=== PATIENT | male | born 1955 | race Caucasian/White ===

== ENCOUNTER 2016-10-26 18:54 | Inpatient (IN) | payer OTHER, MEDICAID ==
[~2016-10-26] VITALS: Ht 193 cm; Wt 93.3 kg
--- NOTE | ~2016-10-26 | HC ---
[facility] [address] CONSULTATION Name: JEANETTE LECHUGA Room #: 461-P [facility] IN M.R.#: [id number] Admission: 10/26/16 Attend Phys: Huy Adamson Discharge: 11/01/16 Date of : 57 Report #: [id number] THIS REPORT FOR: //name// CC: Mohsen Fraga DATE OF SERVICE: 10/28/2016 WOUND CARE CONSULTATION PERSONAL PHYSICIAN: Alvin Ortega M.D. CHIEF COMPLAINT: Multiple wounds. HISTORY OF PRESENT ILLNESS: This is a 61-year-old white male who is a chronic ventilator patient at [facility] with a history of quadriparesis, who presented through the emergency department for chest pain and palpitations. The patient was found to be in atrial fibrillation with rapid ventricular response. This was treated with a Cardizem drip. Due to the multiple wounds the patient has on his sacrum and bilateral hip region, I have been asked to assist in the care of these wounds. The patient himself is able to verbalize, however, difficulty, given the fact that he has a tracheostomy in place, but he states he has no actual pain in any of the wounds, but does have pressure sensations. PAST MEDICAL HISTORY: Significant for chronic Afib, chronic anticoagulation; history of quadriparesis; multiple wounds in his sacrococcygeal, bilateral hip and right foot; history of tracheostomy placement; chronic ventilator dependency; PEG tube placement and previous left hip fracture with instrumentation. CURRENT MEDICATIONS: Multiple, I reviewed the patient's medication list. DRUG ALLERGIES: SULFA. SOCIAL HISTORY: The patient has a history of smoking in the past. He does not drink alcohol. Currently, he is a long-term ventilatory patient at [facility]. FAMILY HISTORY: Not pertinent to current medical situation. REVIEW OF SYSTEMS: CONSTITUTIONAL: The patient denies fevers or chills. NEUROLOGIC: The patient is a quadriplegic. EYES: No complaints. ENT: No complaints. CARDIAC: The patient came in with history of palpitations and was found to be [facility] [address] [place] [address] CONSULTATION Name: JEANETTE LECHUGA Room #: 461-P DIS IN M.R.#: [id number] Admission: 10/26/16 Attend Phys: Huy Adamson Discharge: 11/01/16 Date of : 57 Report #: [id number] in rapid atrial fibrillation. Denies chest pain or palpitations at this time. Denies any associated edema. RESPIRATORY: The patient denies shortness breath or cough. Once again, he is on chronic ventilatory management. GASTROINTESTINAL: The patient has a PEG tube. Denies nausea or vomiting. MUSCULOSKELETAL: No complaints. SKIN: There are multiple decubitus ulcers. PHYSICAL EXAMINATION: VITAL SIGNS: Stable. The patient is afebrile. GENERAL: This is an alert and oriented times [address], not time, white male who is on chronic ventilatory management. HEENT: Normocephalic, atraumatic. Mucous membranes are dry. Pupils are round. Sclerae are white. NECK: Tracheostomy is in place without excoriation or JVD. LUNGS: Slightly diminished breath sounds heard throughout. Occasional wheeze. HEART: Irregularly irregular with 2/6 systolic ejection murmur. ABDOMEN: Soft. PEG tube is in place. SKIN: Evaluation of sacral region reveals a stage 4 sacral decubitus ulcer which measures 10.0 x 3.0 x 1.0 cm. Wound base is fairly clean and granulating. On the right ischial, there is a decubitus ulcer which is stage 3, measures 5.0 x 2.5 x 2.0 cm. On the left hip, there is wound that measures 11.0 x 4.0 x 4.5 cm. There is palpable hardware in this ulceration. On the shaft of the penis, on the ventral surface, is a ulceration, most likely from the catheter. On the right heel is an unstageable decubitus ulcer, which measures 3.5 x 1.3 cm, with dense eschar. On the plantar aspect of the right foot is an ulceration which probes to bone underneath the third toe. On the left heel is an ulceration which is stage 3, measuring 4.0 cm x 4.0 cm, which is a mix of mainly slough, approximately 90% and some granulation tissue. NEUROLOGIC: Cranial nerves 2-12 are grossly intact. Motor and sensory grossly intact. LABORATORY DATA: White count 15.8, hemoglobin 6.6. WOUND CARE COURSE: I spoke with the patient at this point in time given the extensive nature of the wound on his left hip with exposed hardware more than likely the only way to treat this would be with hip articulation. Orthopedics has been consulted as well as the patient most likely will need some type of operative repair or amputation of the right third toe. IMPRESSION: 1. Stage 4 sacrococcygeal decubitus ulcer. 2. Stage 4 decubitus ulcer of the left hip with exposed hardware. 3. Unstaged decubitus ulcer of the right plantar foot with exposed bone over the third metatarsal region. 4. Bilateral decubitus ulcers to the heels; right is unstageable, left is stage [address] [address] CONSULTATION Name: JEANETTE LECHUGA Room #: 461-P DIS IN M.R.#: [id number] Admission: 10/26/16 Attend Phys: Huy Adamson Discharge: 11/01/16 Date of : 57 Report #: [id number]. 5. Quadriparesis. 6. Generalized debility. 7. Chronic respiratory failure, on ventilator management. PLAN: At this time, we will use Silvadene, Xeroform and ABD to all of the open ulcerations, to be changed twice daily. Once again, orthopedics has been consulted for evaluation of the exposed hardware in the left hip as well as to the right foot exposed bone. We will try to maximize the patient's oral protein supplementation via his PEG tube. We will continue to follow the patient. <ELECTRONICALLY SIGNED> By: Chip Haile MD 11/02/16 0734 [id number] [id number] Chip Haile MD /nt
--- NOTE | ~2016-10-26 | H ---
[facility] [place] [address] HISTORY AND PHYSICAL Name: JEANETTE LECHUGA Room #: 461-P ADM IN M.R.#: [id number] Admission: 10/26/16 Attend Phys: Huy Adamson Discharge: Date of : 57 Report #: [id number] THIS REPORT FOR: //name// CC: Mohsen Fraga DATE OF SERVICE: 10/26/2016 ATTENDING: Dr. Fraga CHIEF COMPLAINT: Chest pain. HISTORY OF PRESENT ILLNESS: The patient is a 61-year-old gentleman, who is on a chronic ventilator at [facility] to [facility]riparesis came to the Emergency Room with chest pain and palpations. He was found to have rapid atrial fibrillation with . He has got a longstanding history of chronic respiratory failure and ventilator dependence related to underlying quadriparesis. There is report that he has an open wound in the left lower leg and there is some exposed hardware. This has not healed and he was actually a scheduled for admission for surgical intervention regarding the wound when he was found to have rapid atrial fibrillation and was diverted to the Emergency Room. He has been stabilized overnight with Cardizem drip and his ventilator care and no other new issues overnight. 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 PAST SURGICAL HISTORY: He has had trach, PEG or some surgery that has been performed to his left leg and it looks like an abdominal wound. FAMILY HISTORY: Unknown. SOCIAL HISTORY: He has got a [id number] history of smoking, unknown alcohol use. ALLERGIES: SULFA. MEDICATIONS: Pepcid, Paxil, Eliquis, Ritalin, MiraLax, clonidine, diltiazem, DuoNeb, hydrocodone, Ativan and Zanaflex. REVIEW OF SYSTEMS: He denies headache, chest pain, shortness of breath, abdominal pain, dysuria, syncope or fall. PHYSICAL EXAMINATION: VITAL SIGNS: Temperature 36.5, pulse 105, respirations 20, blood pressure 113/68, O2 sat 100% on the ventilator. [facility] [address] [place] [address] HISTORY AND PHYSICAL Name: JEANETTE LECHUGA Room #: 461-P ADM IN M.R.#: [id number] Admission: 10/26/16 Attend Phys: Huy Adamson Discharge: Date of : 57 Report #: [id number] GENERAL: He is awake and alert, in no distress. LUNGS: Clear. HEART: Irregular. ABDOMEN: Soft, normoactive bowel sounds. PEG tube in place. EXTREMITIES: There is an ostomy bag into an open area in the left mid abdomen. EXTREMITIES: No cyanosis, clubbing or edema. He has an open wound with what looks to be may be tender and exposed in the left lower leg. 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 LABORATORY DATA: X-rays were reviewed. ASSESSMENT: 1. Open wound, left lower leg. 2. Rapid atrial fibrillation. 3. Chronic ventilator dependence. 4. Chronic hypoxic respiratory failure. 5. Quadriparesis. 6. Leukocytosis. 7. Anemia of chronic disease, microcytic. PLAN: We will try to manage his AFib with rate control with diltiazem and atenolol. I will ask Cardiology to see him, as it appears he may need some surgery related to his left leg wound. Dr. Duffy will help manage the ventilator and I do not anticipate any weaning, as he has failed in the past and has been deemed a chronic ventilator dependence. I have spoken with Dr. Kain Fraga regarding infectious processes. X-ray of the leg will be obtained. He has had a Doppler ultrasound that showed peripheral artery disease, but no occlusion. I will ask ____ to see him as well. <ELECTRONICALLY SIGNED> By: Alvin Ortega MD 10/28/16 0839 [id number] 1117 Alvin Ortega MD /nt
--- NOTE | ~2016-10-26 | HC ---
[facility] [place] [address] CONSULTATION Name: JEANETTE LECHUGA Room #: 461-P ADM IN M.R.#: [id number] Admission: 10/26/16 Attend Phys: Huy Adamson Discharge: Date of : 57 Report #: [id number] THIS REPORT FOR: //name// CC: Mohsen Fraga REASON FOR CONSULTATION: I was asked to evaluate concerning pneumonia and chronic wounds to his extremities and sacrum. HISTORY OF PRESENT ILLNESS: The patient is a 61-year-old quadriplegic for many years with respiratory failure, tracheostomy, who had been at [facility] due to his failure to wean from the ventilator, also has chronic wounds to both ankles and his sacrum, presents with worsening oxygenation along with atrial fibrillation, rapid ventricular response, was brought into the Emergency Room where chest x-ray showed left lower lobe consolidation. He was placed on broad IV antibiotic therapy. Blood cultures grown, one of two sets positive for gram-positive coccus. He has had chronic wounds to his pelvis and his lower extremities due to pressure. Has a fracture to the left femur with an IM wisam in place longstanding. PAST MEDICAL HISTORY: Ventilatory dependent respiratory failure, quadriparesis, atrial fibrillation. It is noted that he had a wound to the left hip region with exposed hardware. ALLERGIES: SULFA. MEDICATIONS: As noted on his MAR, now on vancomycin, Zosyn and Levaquin. SOCIAL HISTORY: Past smoker, no significant alcohol intake. FAMILY HISTORY: Noncontributory. REVIEW OF SYSTEMS: He remains on the ventilator, moderate tracheal secretions. He is on FiO2 of 40%. He is alert, no change in mental status, has a colostomy and a PEG tube. PHYSICAL EXAMINATION: VITAL SIGNS: Afebrile and hemodynamically stable. GENERAL: He was alert. Left upper extremity PICC was unremarkable. HEENT: Tracheostomy is unremarkable. ABDOMEN: PEG site unremarkable. Colostomy unremarkable. Indwelling Miller catheter. SKIN: Has wounds to his sacrum with clean granulation tissue. The left hip wound with a sinus tract, which goes down to her hardware. Bilateral lateral ankle wounds with granulation tissue along with eschar. No surrounding erythema. His right plantar foot has got a wound over the third metatarsal head, which does have some exposed bone. NEUROLOGIC: He is quadriplegic. [address] [address] CONSULTATION Name: JEANETTE LECHUGA Room #: 1-[facility] IN M.R.#: [id number] Admission: 10/26/16 Attend Phys: Huy Adamson Discharge: Date of : 57 Report #: [id number] LABORATORY STUDIES: Chest x-ray, left lower lobe consolidation. 102. X-rays of the left tib-fib without osteomyelitis changes. Arterial studies of lower extremity negative for significant occlusive disease. Blood cultures one of two showing gram-positive cocci. Vancomycin trough is 28, dose has been adjusted. Hemoglobin 6.6, platelet count , white count 15.8. Sodium 140, potassium 3.6, bicarbonate 36, creatinine 0.5. IMPRESSION: A 61-year-old with chronic respiratory failure, ventilatory dependent, with left lower lobe pneumonia, atrial fibrillation and rapid ventricular response, consider nosocomial, healthcare-associated infection. The patient has pressure wounds sacrum, which is reasonably clean; left hip, which tracts to the hardware and bilateral ankle wounds, which were reasonably cleaned along with exposed bone to the plantar aspect of his right third metatarsal head. RECOMMENDATION: Continue IV antibiotic therapy. Obtain a culture from the right hip sinus tract. I have discussed with wound care service regarding approach to his wounds. Orthopedic Surgery has been consulted, but has not yet addressed his left hip wound and the hardware. We will need further imaging of this. We will await identification of his blood screening organism. <ELECTRONICALLY SIGNED> By: Kain Fraga MD 10/30/16 0951 1345 1744 Kain Fraga MD /nt
--- NOTE | ~2016-10-26 | HC ---
[facility] [place] [address] CONSULTATION Name: JEANETTE LECHUGA Room #: 461-P ADM IN M.R.#: [id number] Admission: 10/26/16 Attend Phys: Huy Adamson Discharge: Date of : 57 Report #: [id number] THIS REPORT FOR: //name// CC: Mohsen Fraga PRIMARY CARE PHYSICIAN: Dr. Mohsen Fraga. REFERRAL PHYSICIAN: Dr. Ortega. REASON FOR REFERRAL: Management of mechanical ventilation. HISTORY OF PRESENT ILLNESS: The patient is a 61-year-old white male who was brought to the Emergency Room with chest pains, dyspnea. A pulmonary consultation was requested. The patient is deemed to be ventilator dependent. He is a resident at [facility] due to quadriparesis. The patient was in his usual state of health until the day of presentation where the patient complained of chest pains along with palpitation. He was found to be in atrial fibrillation with rapid ventricular response. Currently, he is stable. He has been on Cardizem drip. History is limited as the patient has a tracheostomy. He appears to be awake, in no distress. PAST MEDICAL HISTORY: Remarkable for chronic respiratory failure, ventilator dependent due to quadriparesis from an underlying injury, atrial fibrillation, chronic wounds, abdominal fistula. PAST SURGICAL HISTORY: As mentioned above including prior PEG tube placement along with abdominal wounds as mentioned above. ALLERGIES: To SULFA, reactions not specified. MEDICATIONS: From the facility include Pepcid, Paxil, Eliquis, methylphenidate, MiraLax, Catapres, Cardizem, DuoNeb, Tylenol, hydrocodone, Ativan, pancrease, antacid, Zanaflex. FAMILY HISTORY: Unknown. SOCIAL HISTORY: The patient had smoked in the past 40 pack years. No alcohol history. REVIEW OF SYSTEMS: The patient has a tracheostomy and is not able to provide adequate answers. [facility] [address] [place] [address] CONSULTATION Name: JEANETTE LECHUGA Room #: 461-P [facility] IN [facility].#: [id number] Admission: 10/26/16 Attend Phys: Huy Adamson Discharge: Date of : 57 Report #: [id number] PHYSICAL EXAMINATION: GENERAL: He is awake, in no apparent distress. VITAL SIGNS: Temperature is 98 degrees Fahrenheit; pulse is 125, currently is 110 beats per minute, it is irregular; respiratory rate is 21; blood pressure 123/71 mmHg; saturation 100%. His current ventilator setting includes assist control, FiO2 40%, tidal volume 450, respiratory rate set at 12, minute ventilation around 9.4 liters per minute, peak inspiratory pressure 21, PEEP of 5. HEENT: Normocephalic, atraumatic. NECK: Supple, without lymphadenopathy or thyromegaly, status post tracheostomy. CHEST: Breath sounds are fairly clear. are decreased. No wheezes. CARDIOVASCULAR: No obvious murmurs or gallop. Pulses are 2+/4+ bilaterally. ABDOMEN: Soft, nontender. A PEG tube is noted in the mid quadrant area. No masses felt. GENITOURINARY: Deferred. RECTAL: Deferred. EXTREMITIES: No cyanosis, clubbing or edema. MUSCULOSKELETAL: Remarkable for moderate muscle atrophy. Lower extremity wounds are noted, but not fully examined as they are covered with wound dressing. LABORATORY DATA: Chest x-ray revealed air bronchogram seen in the left lower lobe. Tracheostomy is noted in the mid upper trachea area. WBC 28,500 without a left shift. Hemoglobin 7.7, platelets are 887,000. Troponin is normal. Sodium 137, potassium 4.4, chloride 98, CO2 is 37, BUN is 18, creatinine 0.5. IMPRESSION: 1. Chest pains, palpitations in this 61-year-old white male with chronic respiratory failure. He appears to be in atrial fibrillation with rapid ventricular response. 2. Chronic respiratory failure, vent dependent due to quadriparesis due to an inapparent injury. Saturation is adequate. We will obtain arterial blood gas. 3. Leukocytosis. This is without a left shift. Maybe reactive. Cannot rule out occult infection given his past history of chronic wounds. 4. Anemia, appears to be hypochromic, microcytic. Need to consider iron deficiency anemia. We will defer to primary team. 5. Chronic wounds in the left lower extremities. The patient is felt to have possible osteomyelitis. 6. Generalized debility, weakness. RECOMMENDATION: We will continue mechanical ventilation, baseline arterial blood gas will be obtained. Continue Cardizem as you are, Broad spectrum antibiotics per Infectious Disease. DVT and GI prophylaxis will be addressed. [address] [address] CONSULTATION Name: JEANETTE LECHUGA Room #: 461-P ADM IN M.R.#: [id number] Admission: 10/26/16 Attend Phys: Huy Adamson Discharge: Date of : 57 Report #: [id number] We will need to resume the nutritional feeds if stable. Thank you for this consultation. By: 1530 1854 ALIZE White /wendy
--- NOTE | ~2016-10-26 | EKG ---
[address] [place] [address] ELECTROCARDIOGRAM REPORT Name: JEANETTE LECHUGA Room #: 461-P ADM IN M.R.#: [id number] Admission: 10/26/16 Attend Phys: Huy Adamson Discharge: Date of : 57 Report #: [id number] THIS REPORT FOR: //name// [facility] ED Test Date: 2016-10-26 Test Time: 18:58:45 Pat Name: JEANETTE LECHUGA Department: Room: 461 Gender: M Site Worker: FABIO : 1955 Requested By: Irene Figueroa Order Number: [id number] MD: Freddie Thacker Measurements Intervals Union Rate: 160 P: VA: QRS: 101 QRSD: 98 T: 35 QT: 272 QTc: 444 Interpretive Statements Atrial fibrillation Consider right ventricular hypertrophy Artifact in lead(s) I,II,III,aVR,aVL,aVF No previous ECG available for comparison Electronically Signed On 10-27-2016 8:15:32 CDT by Freddie Thacker [email or web address] <ELECTRONICALLY SIGNED> By: Freddie Thacker MD, [facility] 10/27/16 0815 57 Freddie Thacker MD, [facility] /EPI
[2016-10-26 18:56] VITALS: BP 111/64
[2016-10-26] MEDS ORDERED: PEPCID20 MG PER TUBE (19:17)
[2016-10-26] MEDS ORDERED: PAXIL10 MG PER TUBE (19:23)
[2016-10-26] MEDS ORDERED: ELIQUIS5 MG PO (19:24)
[2016-10-26] MEDS ORDERED: METHYLPHENIDATE5 M1 PO (19:25)
[2016-10-26] MEDS ORDERED: MIRALAX17 GM PER TUBE (19:26)
[2016-10-26] MEDS ORDERED: CARDIZEM30 MG PER TUBE (19:27)
[2016-10-26] MEDS ORDERED: CATAPRES0.2 MG PER TUBE (19:27)
[2016-10-26] MEDS ORDERED: DUONEB 2.5-0.5 M3 ML (19:28)
[2016-10-26] MEDS ORDERED: IPRAT-ALBUT 0.5-3 ML INH (19:29)
[2016-10-26] MEDS ORDERED: TYLENOL325 MG PER TUBE (19:32)
[2016-10-26] MEDS ORDERED: MUPIROCIN22 GM TOP (19:32)
[2016-10-26] MEDS ORDERED: ATIVAN1 MG PO (19:33)
[2016-10-26] MEDS ORDERED: HYDROCODONE-APA1 TA1 PO (19:33)
[2016-10-26] MEDS ORDERED: PANCREAZE DR 11 EAC1 (19:34)
[2016-10-26] MEDS ORDERED: ANTACID325 MG PER TUBE (19:35)
[2016-10-26] MEDS ORDERED: ZANAFLEX4 MG (19:35)
[2016-10-26 19:40] LABS: HEMATOCRIT 25.6 % (42.0-52.0); HEMOGLOBIN 7.7 gm/dL (14.0-18.0); MCH 20.9 pg (26.0-34.0); MCV 69.7 fL (80.0-100.0); RBC 3.68 mil/uL (4.50-6.00); RDW 19.1 % (10.5-14.5); WBC 28.5 thou/uL (4.0-11.0)
[2016-10-26 19:42] LABS: MANUAL DIFF YES
[2016-10-26 19:43] LABS: PLATELET COUNT 887 thou/uL (150-400)
[2016-10-26 19:44] LABS: ANION GAP 2 mmol/L (7-16); BUN 18 mg/dL (7-18); CALCIUM 9.9 mg/dL (8.5-10.1); CHLORIDE 98 mmol/L (98-107); CO2 37 mmol/L (21-32); CREATININE 0.5 mg/dL (0.7-1.3); GLUCOSE 148 mg/dL (74-106); POTASSIUM 4.4 mmol/L (3.5-5.1); SODIUM 137 mmol/L (136-145)
[2016-10-26 19:53] LABS: TROPONIN-I < 0.04 ng/mL (<0.04-0.07)
[2016-10-26 19:57] LABS: ABSOLUTE NEUTROPHILS 23.7 thou/uL (1.4-8.2); TOTAL CELL COUNT 100
[2016-10-26 19:58] LABS: ANISOCYTOSIS 2+
[2016-10-26 19:59] LABS: HYPOCHROMASIA 3+; MICROCYTES 2+
[2016-10-26 21:55] VITALS: BP 101/63
[2016-10-26 22:30] VITALS: BP 102/62
[2016-10-26 23:33] VITALS: BP 117/75
[2016-10-27 05:31] VITALS: BP 105/62
[2016-10-27 08:36] VITALS: BP 113/68
[2016-10-27 11:01] VITALS: BP 123/71
[2016-10-27 16:12] VITALS: BP 94/52
[2016-10-27 19:57] VITALS: BP 97/65
[2016-10-28 03:39] VITALS: BP 107/70
[2016-10-28 06:06] LABS: HEMATOCRIT 21.3 % (42.0-52.0); HEMOGLOBIN 6.6 gm/dL (14.0-18.0); MCH 21.6 pg (26.0-34.0); MCHC 30.8 g/dL (28.0-37.0); MCV 70.1 fL (80.0-100.0); RBC 3.04 mil/uL (4.50-6.00); WBC 15.8 thou/uL (4.0-11.0)
[2016-10-28 06:10] LABS: CREATININE 0.5 mg/dL (0.7-1.3); POTASSIUM 3.6 mmol/L (3.5-5.1)
[2016-10-28 07:58] VITALS: BP 93/64
[2016-10-28 10:12] LABS: URINE BILIRUBIN NEGATIVE (Negative); URINE BLOOD NEGATIVE (Negative); URINE COLOR YELLOW; URINE GLUCOSE-RANDOM* NEGATIVE (Negative); URINE KETONES NEGATIVE (Negative); URINE LEUKOCYTES-REFLEX 1+ (Negative); URINE PROTEIN (DIPSTICK) TRACE (Negative); URINE SPECIFIC GRAVITY 1.015 (1.003-1.035); URINE UROBILINOGEN 0.2 E.U./dl (0.2-1.0)
[2016-10-28 12:00] VITALS: BP 85/58
[2016-10-28 12:16] LABS: CASTS None Seen /LPF (None Seen); SQUAMOUS 0-3 Few /LPF (0-3)
[2016-10-28 12:17] LABS: CALCIUM OXALATE 0-3 Few /LPF (None Seen); URINE RBC 0-2 Rare /HPF (0-2); URINE WBC-REFLEX 6-15 Few /HPF (0-5)
[2016-10-28 16:00] VITALS: BP 94/66
[2016-10-28 19:30] VITALS: BP 102/73
[2016-10-28 23:45] VITALS: BP 82/53
[2016-10-29] VITALS (8 sets, daily range): BP systolic 82–117; BP diastolic 46–80
[2016-10-29 06:10] LABS: WBC 17.7 thou/uL (4.0-11.0)
[2016-10-29 06:12] LABS: HEMATOCRIT 20.5 % (42.0-52.0); MCH 21.1 pg (26.0-34.0); MCHC 30.5 g/dL (28.0-37.0); MCV 69.3 fL (80.0-100.0); RBC 2.96 mil/uL (4.50-6.00); RDW 18.5 % (10.5-14.5)
[2016-10-29 06:19] LABS: CALCIUM 8.5 mg/dL (8.5-10.1); CREATININE 0.6 mg/dL (0.7-1.3); POTASSIUM 3.4 mmol/L (3.5-5.1)
[2016-10-29 06:22] LABS: HEMOGLOBIN 6.3 gm/dL (14.0-18.0)
[2016-10-30 03:59] VITALS: BP 109/64
[2016-10-30 07:50] VITALS: BP 89/51
[2016-10-30 11:37] VITALS: BP 100/58
[2016-10-30 16:15] VITALS: BP 91/53
[2016-10-30 19:02] VITALS: BP 97/61
[2016-10-31 00:18] VITALS: BP 81/50
[2016-10-31 04:11] VITALS: BP 90/55
[2016-10-31 07:20] VITALS: BP 104/60
[2016-10-31 11:28] VITALS: BP 107/63
[2016-10-31 15:53] VITALS: BP 94/60
[2016-11-01 05:00] VITALS: BP 97/67
[2016-11-01 05:24] LABS: MCH 21.5 pg (26.0-34.0); MCHC 30.9 g/dL (28.0-37.0); MCV 69.7 fL (80.0-100.0); RBC 2.78 mil/uL (4.50-6.00); RDW 19.1 % (10.5-14.5); WBC 15.3 thou/uL (4.0-11.0)
[2016-11-01 05:29] LABS: ANION GAP < 0 mmol/L (7-16); BUN 27 mg/dL (7-18); CALCIUM 8.3 mg/dL (8.5-10.1); CHLORIDE 102 mmol/L (98-107); CO2 37 mmol/L (21-32); CREATININE 0.6 mg/dL (0.7-1.3); GLUCOSE 117 mg/dL (74-106); POTASSIUM 3.6 mmol/L (3.5-5.1); SODIUM 138 mmol/L (136-145)
[2016-11-01 05:38] LABS: HEMATOCRIT 19.3 % (42.0-52.0)
[2016-11-01 08:14] VITALS: BP 102/51
[2016-11-01] MEDS ORDERED: BACLOFEN 10MG T10 MG PER TUBE (08:29)
[2016-11-01] MEDS ORDERED: ATENOLOL 25 MG25 M1 PER TUBE (08:29)
[2016-11-01] MEDS ORDERED: HYDROCODONE-APA1 TA1 PO (08:30)
[2016-11-01] MEDS ORDERED: ACETAMINOPHEN325 M1 PO (08:30)
[2016-11-01] MEDS ORDERED: ATIVAN1 MG PER TUBE (08:31)
[2016-11-01 09:43] VITALS: BP 104/58; BP 113/67; BP 84/53
[2016-11-01] MEDS ORDERED: VANCO 1 GR1 GM/250 M IV (10:01)
[2016-11-01] MEDS ORDERED: CEFTAZIDIME IV (10:04)
[2016-11-01 11:58] VITALS: BP 113/67
== END 2016-11-01 14:05 | DRG 870 ==
LOC: ER 18:54 → EROBS 20:01 → 4W 20:01 → EROBS 22:37 → 4W 23:32
PROVIDERS: Emergency Medicine; Internal Medicine Geriatric Medicine; Internal Medicine Pulmonary Disease; Specialist
PROC: B548ZZA Ultrasonography of Superior Vena Cava, Guidance (ICD-10-PCS; principal; 2016-10-26)
PROC: 02HV33Z Insertion of Infusion Device into Superior Vena Cava, Percutaneous Approach (ICD-10-PCS; principal; 2016-10-26)
PROC: 5A1955Z Respiratory Ventilation, Greater than 96 Consecutive Hours (ICD-10-PCS; principal; 2016-10-26)
PROC: 30233N1 Transfusion of Nonautologous Red Blood Cells into Peripheral Vein, Percutaneous Approach (ICD-10-PCS; 2016-11-01)
DX: A41.01 Sepsis due to Methicillin susceptible Staphylococcus aureus (principal); J96.20 Acute and chronic respiratory failure, unspecified whether with hypoxia or hypercapnia; G82.50 Quadriplegia, unspecified; L89.154 Pressure ulcer of sacral region, stage 4; L89.224 Pressure ulcer of left hip, stage 4; L89.623 Pressure ulcer of left heel, stage 3; J18.9 Pneumonia, unspecified organism; M86.8X6 Other osteomyelitis, lower leg; M86.8X8 Other osteomyelitis, other site; L89.610 Pressure ulcer of right heel, unstageable; D64.9 Anemia, unspecified; I10 Essential (primary) hypertension; D47.3 Essential (hemorrhagic) thrombocythemia; F17.210 Nicotine dependence, cigarettes, uncomplicated; I73.9 Peripheral vascular disease, unspecified; I48.2 Chronic atrial fibrillation; Z79.01 Long term (current) use of anticoagulants; Z88.2 Allergy status to sulfonamides
CPT/HCPCS: 10045; 27000

== ENCOUNTER 2017-01-02 15:57 | Inpatient (IN) | payer OTHER, MEDICAID ==
[2017-01-02] VITALS (22 sets, daily range): BP systolic 62–104; BP diastolic 37–90
[~2017-01-02] VITALS: Ht 177.8 cm; Wt 108.4 kg
--- NOTE | ~2017-01-02 | HC ---
[facility] [place] [address] CONSULTATION Name: JEANETTE LECHUGA Room #: 237-P [facility] IN M.R.#: [id number] Admission: 01/02/17 Attend Phys: Huy Adamson Discharge: Date of : 57 Report #: [id number] THIS REPORT FOR: //name// CC: Mohsen Fraga REASON FOR CONSULTATION: I was asked to evaluate concerning septic shock. HISTORY OF PRESENT ILLNESS: The patient was a 61-year-old with respiratory failure, known to me from his previous hospitalization on 10/26/2016 where he was diagnosed with MRSA bacteremia related to pneumonia versus osteomyelitis. In addition, he had gram-negatives in his sputum and his urine. He has known osteomyelitis of his left hip, both ankles and right foot metatarsals. He did not consent for surgical intervention regarding his bony abnormalities. My plan at the first part of November was to finish his course of treatment with vancomycin and ceftazidime for his bacteremia and gram-negatives from his sputum and urine. Then would go to oral suppression with doxycycline and see if we can keep the hips under control. He returns from [facility] with further hypoxia and hypotension. He was found to have a hemoglobin of 5.4. Blood pressures remained low and he has required fluids, blood transfusion and vasopressors. Moderate amount of tracheal secretions. He has hypospadias from long-term indwelling Miller catheter placement. His wounds remained dressed. He has a colostomy which is functioning well. The patient denies any specific chest pain, abdominal pain. PAST MEDICAL HISTORY: Multiple decubitus wounds with osteomyelitis, quadriparesis due to C-spine injury, atrial fibrillation, respiratory failure. ALLERGIES: SULFA. MEDICATIONS: As noted on his MAR, now on vancomycin, Zosyn, and micafungin. FAMILY HISTORY AND SOCIAL HISTORY: Otherwise, noncontributory. REVIEW OF SYSTEMS: Noted above. PHYSICAL EXAMINATION: VITAL SIGNS: Afebrile, heart rate 125, blood pressure 112/69 with a MAP of 80, on 80% FIO2. GENERAL: He was alert and cooperative. He was quadriparetic. Right upper extremity PICC was unremarkable. HEENT: Unremarkable. Tracheostomy site unremarkable. LUNGS: Coarse bilaterally. HEART: Regular. ABDOMEN: Soft, ostomy was unremarkable. He had significant hypospadias with the catheter exiting out the base of his penis. EXTREMITIES: The wounds were dressed and dry. Wound care just been in to evaluate. [facility] [address] [place] [address] CONSULTATION Name: JEANETTE LECHUGA Room #: 237-P ADM IN [facility].#: [id number] Admission: 01/02/17 Attend Phys: Huy Adamson Discharge: Date of : 57 Report #: [id number] LABORATORY STUDIES: Sodium 137, potassium 4.9, bicarbonate 31, creatinine 0.5, AST of 35, ALT 13, lipase was normal. Albumin of 1.6, lactate 1.2. Hemoglobin 7, up from 5.7 on admission, WBC 41.9, platelet count 772,000. Differential, 90% segs, 1% band. Urinalysis, many wbc's, moderate bacteria. ABG this morning on FIO2 of 100% showed a pO2 164, pCO2 of 48, pH 7.4. Blood cultures are pending. Urine cultures pending. No sputum obtained. Legionella and strep pneumo antigens negative. CT scan of the chest, no evidence of pulmonary emboli, complete atelectasis of left lung with extensive endobronchial debris, right lower lung infiltrate with bronchial debris, moderate mediastinal adenopathy. IMPRESSION: A 61-year-old with respiratory failure, now with aspiration, mucous plugging with dense atelectasis involving the left lung and right base, septic shock. Also has evidence of cystitis. Has advanced pressure wounds with osteomyelitis, nonoperative. PLAN: Recommend full support with IV fluids and vasopressors as needed. It appears, he will need bronchoscopy for pulmonary clearance. We will await pulmonary evaluation this morning. We will continue with broad antibiotic coverage pending further culture results. His previous sputum culture had grown Acinetobacter that was multidrug resistant. We will make adjustments empirically to his antibiotic coverage. <ELECTRONICALLY SIGNED> By: Kain Fraga MD 01/04/17 0912 0853 1043 Kain Fraga MD /nt
--- NOTE | ~2017-01-02 | H ---
[facility] [place] [address] HISTORY AND PHYSICAL Name: JEANETTE LECHUGA Room #: 237-P ADM IN M.R.#: [id number] Admission: 01/02/17 Attend Phys: Huy Adamson Discharge: Date of : 57 Report #: [id number] THIS REPORT FOR: //name// CC: Mohsen Fraga DATE OF SERVICE: 01/02/2017 CHIEF COMPLAINT: Possible sepsis. HISTORY OF PRESENT ILLNESS: The patient is a 61-year-old gentleman from [facility] with chronic respiratory failure, ventilator dependent who was sent to the Emergency Room for evaluation of sepsis. It appeared lab work was obtained routinely at the facility and noted to have a white count of 24,000. He has multiple wounds throughout and has been reported as not compliant with medication, wound care at the facility. He was hospitalized here in early November for evaluation of wounds of his feet. He had nonhealing arterial insufficiency type wounds and osteomyelitis and refused definitive amputation. He was sent back to the facility with a course of IV antibiotics and then planned to transition to suppression, oral antibiotics. PAST MEDICAL HISTORY: Quadriplegia with chronic respiratory failure, tracheostomy, PEG tube, an ostomy related to his original illness. He has been ventilator dependent for quite some time. He also has atrial fibrillation, hypertension, restless legs syndrome, anxiety, GERD. He has multiple wounds in the sacrum, scrotum and feet. There was concern of osteomyelitis in the feet during last admission. PAST SURGICAL HISTORY: Unknown. FAMILY HISTORY: Unobtainable. SOCIAL HISTORY: Unknown. ALLERGIES: SULFA. MEDICATIONS: Diltiazem, baclofen, atenolol, Ativan, Pepcid, Paxil, Eliquis, DuoNeb. REVIEW OF SYSTEMS: He is awake and alert. Denies any chest pain, abdominal pain, nausea, vomiting, dysuria, syncope. PHYSICAL EXAMINATION: VITAL SIGNS: Temperature 36.9, pulse 125, respirations 20, blood pressure 112/69, O2 sat 100% on the ventilator 40%. GENERAL: He is awake and alert. He is able to express his needs. HEAD AND NECK: Unremarkable with tracheostomy in place. [facility] [address] [place] [address] HISTORY AND PHYSICAL Name: JEANETTE LECHUGA Room #: 237-P ADM IN M.R.#: [id number] Admission: 01/02/17 Attend Phys: Huy Adamson Discharge: Date of : 57 Report #: [id number] LUNGS: Diminished on the left. Clear on the right. HEART: Tachycardic, regular rhythm. ABDOMEN: Soft, normoactive bowel sounds, slightly distended. He has a PEG tube in place. There is a left mid abdomen ostomy. EXTREMITIES: He has some flexion contractures at the hips and knees. There are wounds under the scrotum over the sacrum in both feet. NEUROLOGIC: He has spastic rigidity and quadriparesis throughout. ASSESSMENT: 1. Sepsis. 2. Healthcare-associated pneumonia with obliteration of the left lung on x-ray. 3. Chronic hypoxic and hypercapnic respiratory failure. 4. Ventilator dependence. 5. Arterial insufficiency wounds of the feet. 6. Suspected osteomyelitis of the left foot. 7. Sacral and scrotal wounds. 8. Anemia of chronic disease. 9. Chronic atrial fibrillation. PLAN: Multiple consultants have assessed him already and full treatment for sepsis is ongoing. Current medications will be reviewed. Continue supportive care. If he is going to be not compliant with surgical opinions and recommendations for treatment of his wounds on feet and not compliant with wound care at the facility, then this is a terminal situation and really need to pursue palliative care with him. We will see how the next few days go. <ELECTRONICALLY SIGNED> By: Alvin Ortega MD 01/04/17 1241 [id number] Alvin Ortega MD /nt
--- NOTE | ~2017-01-02 | HC ---
[facility] [place] [address] CONSULTATION Name: JEANETTE LECHUGA Room #: 237-P ADM IN M.R.#: [id number] Admission: 01/02/17 Attend Phys: Huy Adamson Discharge: Date of : 57 Report #: [id number] THIS REPORT FOR: //name// CC: Mohsen Fraga DATE OF SERVICE: 01/02/2017 REFERRING PROVIDER: Rui Fraga MD REASON FOR CONSULTATION: Respiratory failure. HISTORY OF PRESENT ILLNESS: Our group was asked to see the patient in consultation while hospitalized at [facility], known to us from recent hospital admission about 4 months ago. A 61-year-old male with prior admission for sepsis, likely related to MRSA bacteremia and chronic wound prior hospital stay. Orthopedic stated the patient will need extensive resections due to multiple decubitus ulcers, the patient refused at that time. He is a chronic ventilator patient and is at [facility]. The patient was found to be more hypoxemic in addition to having an elevated white blood cell count. He has a chronic anemia with hemoglobin today, however, at 5.4 was transferred here for further management. Noted in the Emergency Department to be hypoxemic without a significant change in his chest x-ray, no significant airway secretions noted and now being placed on sepsis protocol, to be transfused with 2 units of packed red blood cells and undergo CT imaging of the chest to further evaluate. ALLERGIES: SULFA. PAST MEDICAL HISTORY: 1. History of multiple decubitus ulcers of the lower extremities and pelvis. 2. History of quadriparesis due to C-spine injury. 3. Chronic atrial fibrillation, previously anticoagulated, unclear if he is on anticoagulation at this time. 4. Chronic respiratory failure. OUTPATIENT MEDICATIONS: 1. Diltiazem. 2. Baclofen. 3. Atenolol. 4. Hydrocodone. 5. Lorazepam. 6. Famotidine. 7. Possibly apixaban. 8. Paxil. 9. DuoNeb. 10. Methylphenidate. [address] [address] CONSULTATION Name: JEANETTE LECHUGA Room #: [facility] IN M.R.#: [id number] Admission: 01/02/17 Attend Phys: Huy Adamson Discharge: Date of : 57 Report #: [id number] 11. Zosyn. SOCIAL HISTORY: Currently lives in a long-term care facility. Previous tobacco history. No alcohol consumption at this time. FAMILY HISTORY: Unobtainable. REVIEW OF SYSTEMS: Otherwise, unobtainable at this time due to his current status. PHYSICAL EXAMINATION: VITAL SIGNS: Afebrile, pulse 150 and irregular, respiratory rate 28, blood pressure 104/56. GENERAL: This is a middle-aged male. Awake, alert and obviously uncomfortable. ENT: Tracheostomy tube in place with no surrounding erythema. LUNGS: Relatively clear. No wheezes or crackles. HEART: Regular, tachycardic. No murmurs. ABDOMEN: Soft, mildly distended. PEG tube in place. EXTREMITIES: Revealed multiple decubitus cultures as well as significant ulcerations in the inguinal and pelvic area with significant injury to the ventral surface of the penis through the urethra. LABORATORY DATA: Urinalysis revealed some microscopic hematuria with positive leukocyte esterase, white blood cell count 30,000, hemoglobin 5.7, hematocrit 20, platelet count 617. Sodium 131, potassium 5.5, chloride 94, bicarbonate 34, BUN 38, creatinine 0.6, glucose 127, alkaline phosphatase 143, albumin 1.6. Arterial blood gas on FiO2 of 80%, tidal volume of 450, PEEP of 10, rate of 12 revealed pH 7.39, pCO2 of 57, pO2 of 53, bicarbonate 34. IMPRESSION: 1. Acute on chronic hypoxemic respiratory failure. The chest x-ray with minimal change from previous ____ V/Q mismatch. 2. Multiple decubitus ulcers. 3. Severe sepsis, likely related to the above. 4. Chronic respiratory failure. 5. Chronic left basilar infiltrate or effusion. Does not appear significant different from more recent x-rays a few months ago. SUGGESTIONS: 1. Evaluate for pulmonary embolism. 2. Urology consultation. 3. Infectious Disease consultation. 4. ICU care. 5. Review of paperwork suggests the patient is a DNR, agree with this as he appears to be at the point of futile care. 6. Increase FiO2. [address] [address] CONSULTATION Name: JEANETTE LECHUGA Room #: 237-P ADM IN M.R.#: [id number] Admission: 01/02/17 Attend Phys: Huy Adamson Discharge: Date of : 57 Report #: [id number] 7. Follow up arterial blood gas. 8. Additional recommendations to follow. Thank you for requesting our suggestions. Discussed with ____ nurse practitioner in the Emergency Department as well as nursing. Total critical care time was 35 minutes, not including procedures. By: [id number] Jared Duffy MD /wendy
--- NOTE | ~2017-01-02 | HC ---
[facility] [place] [address] CONSULTATION Name: JEANETTE LECHUGA Room #: 237-P [facility] IN M.R.#: [id number] Admission: 01/02/17 Attend Phys: Huy Adamson Discharge: Date of : 57 Report #: [id number] THIS REPORT FOR: //name// CC: Mohsen Fraga DATE OF SERVICE: 01/03/2017 CHIEF COMPLAINT: Multiple pressure ulcerations and extremity ulcerations. HISTORY OF PRESENT ILLNESS: This is a 61-year-old male patient with chronic respiratory failure, ventilator dependent, who resides at [facility], who was admitted with sepsis. He had an elevated white blood cell count and had been admitted for further evaluation and treatment. He has been seen by us in the past. He has had recommendations for amputation of lower extremities. He has refused this in the past. He has history of arterial insufficiency and osteomyelitis. PAST MEDICAL HISTORY: Positive for quadriplegia, chronic respiratory failure with tracheostomy, PEG tube, colostomy, restless legs syndrome, anxiety, gastroesophageal reflux, multiple chronic ulcerations and osteomyelitis. FAMILY HISTORY: Unobtainable. SOCIAL HISTORY: Unknown. ALLERGIES: SULFA. MEDICATIONS: Include diltiazem, baclofen, atenolol, Ativan, Pepcid, Paxil, Eliquis, DuoNeb. He is currently on antibiotics per Infectious Disease as well as on a Levophed drip. REVIEW OF SYSTEMS: The patient does open his eyes. He is not able to answer any specific questions at this time. PHYSICAL EXAMINATION: VITAL SIGNS: Include respiratory rate of 19, blood pressure 105/69, temperature 97.1. GENERAL: This is a chronically ill-appearing male patient, who appears to be in no distress. HEENT: Head normocephalic. Extraocular movements appear to be grossly intact. NECK: Demonstrates tracheostomy. LUNGS: Reveal diminished breath sounds. HEART: Tachycardic without murmur. ABDOMEN: Soft. It is nontender. Bowel sounds are diminished. He has a PEG tube and a colostomy that appear to be intact and functioning well. GENITOURINARY: The patient is circumcised. He has significant hypospadias that [facility] [address] [place] [address] CONSULTATION Name: JEANETTE LECHUGA Room #: 237-P [facility] IN M.R.#: [id number] Admission: 01/02/17 Attend Phys: Huy Adamson Discharge: Date of : 57 Report #: [id number] is chronic. He has some excoriations and abrasions to his scrotum. SKIN: Examination of the pelvic region demonstrates what appear to be stage 4 pressure ulcerations to bilateral ischial tuberosities, both right and left posterior greater trochanters and his sacral region. These areas have a mixture of some slough and some granulation tissue. There are not much change from before. He has exposed bone in the base, especially involving the left hip region. He has a small crust with stable scab or eschar on the left elbow. He has unstageable pressure ulcer to the left heel, left lateral ankle, lower leg and deep tissue injury to left proximal lower leg. He has deep tissue injury to left great toe and the plantar aspect of the left foot. The right ankle demonstrates a large pressure ulceration, also unstageable, with eschar involving the right great toe and the right foot plantar region. CLINICAL IMPRESSION: 1. Chronic respiratory failure with tracheostomy. 2. Quadriplegia. 3. Severe protein-calorie malnutrition. 4. Stage 4 pressure ulceration bilateral ischial tuberosities, right and left posterior greater trochanters and sacrum with presumed underlying pelvic osteomyelitis. 5. Peripheral arterial disease. 6. Pressure ulceration to the left elbow, unstageable. 7. Pressure ulceration to the left heel, left lateral ankle and lower leg and deep tissue injuries to the left proximal lower leg, left great toe and plantar aspect of the left foot as well as unstageable pressure ulceration to the right lateral ankle with unstageable eschar on the right great toe and right foot plantar region. 8. Hypospadias. 9. Scrotal ulcerations/excoriation. RECOMMENDATIONS: At this point in time, we will recommend silver alginate, ABD and Kerlix to the extremities. We will recommend Betadine to all areas of eschar. He would need continued aggressive nutritional support. We will recommend moisture barrier with an antifungal component to the scrotal region and Maxorb Ag to the pelvic ulcerations. He will need turning and repositioning every 2 hours. Once again, he is in the past declined definitive amputative surgery. It is unlikely that these areas will resolve and I think conservative care would be recommended at present. I appreciate being asked to see the patient in consultation. <ELECTRONICALLY SIGNED> By: Darin Gerber MD 01/04/17 1419 [id number] Darin Gerber MD /nt
--- NOTE | ~2017-01-02 | HC ---
[facility] [place] [address] CONSULTATION Name: JEANETTE LECHUGA Room #: 237-P ADM IN M.R.#: [id number] Admission: 01/02/17 Attend Phys: Huy Adamson Discharge: Date of : 57 Report #: [id number] THIS REPORT FOR: //name// CC: Mohsen Fraga CHIEF COMPLAINT: Sepsis. HISTORY OF PRESENT ILLNESS: The patient is a 61-year-old gentleman, who is being seen today at the request Dr. Mohsen Fraga for evaluation and management of epispadias. Specifically, he was admitted to the ICU from [facility] long-term ventilator care facility with sepsis and anemia. He has a chronic indwelling Miller catheter and has developed iatrogenic hypospadias from this. ALLERGIES: SULFA. MEDICAL ILLNESSES: Chronic respiratory failure, chronic atrial fibrillation, quadriparesis to the C-spine injury, multiple decubitus ulcers. OUTPATIENT MEDICATIONS: Diltiazem, baclofen, atenolol, hydrocodone, lorazepam, famotidine, possibly apixaban, Paxil, DuoNeb, methylphenidate and Zosyn. SOCIAL HISTORY: Lives at a long-term care facility. Previous tobacco history. REVIEW OF SYSTEMS: Unobtainable. PHYSICAL EXAMINATION: GENERAL: He is a middle-aged gentleman, up in bed. VITAL SIGNS: Temperature is 37.1, pulse 130, blood pressure 107/84. ABDOMEN: Soft. He has indwelling Miller catheter with almost a perineal type of hypospadias. Testes are descended bilaterally. There is no acute intrascrotal pathology. There is, however, superficial erosion of the skin of the scrotum. LABORATORY DATA: White count , hemoglobin 7.0; hematocrit 23.4 and platelets 772,000. Sodium 137, potassium 4.9, chloride 101, CO2 31, BUN 32, creatinine 0.5. Urine is cloudy yellow, specific gravity 1.010, pH is 8, leukocyte esterase 3+, 3-10 red cells, greater than 25 white cells. IMPRESSION: Ventilator dependence with chronic Miller. PLAN: I recommend wound care service perhaps to evaluate his scrotum, otherwise it can be cleaned with soap and water. He could be converted to a suprapubic tube but at this point I would probably recommend just leaving the Miller and exchanging it monthly. <ELECTRONICALLY SIGNED> By: Alvin Amado MD 01/04/17 0631 0721 0824 Alvin Amado MD /nt
[~2017-01-02 15:57] MED LIST: ACETAMINOPHEN325 M1 PO; ANTACID325 MG PER TUBE; ATENOLOL 25 MG25 M1 PER TUBE; ATIVAN1 MG PER TUBE; ATIVAN1 MG PO; BACLOFEN 10MG T10 MG PER TUBE; CARDIZEM30 MG PER TUBE; CATAPRES0.2 MG PER TUBE; CEFTAZIDIME IV; DUONEB 2.5-0.5 M3 ML; ELIQUIS5 MG PO; HYDROCODONE-APA1 TA1 PO; IPRAT-ALBUT 0.5-3 ML INH; METHYLPHENIDATE5 M1 PO; MIRALAX17 GM PER TUBE; MUPIROCIN22 GM TOP; PANCREAZE DR 11 EAC1; PAXIL10 MG PER TUBE; PEPCID20 MG PER TUBE; TYLENOL325 MG PER TUBE; VANCO 1 GR1 GM/250 M IV; ZANAFLEX4 MG
[2017-01-02 16:17] LABS: ABG SAMPLE TYPE ARTERIAL; BE(vivo) 8.4 mmol/L (-2 to +3); HCO3 34.1 mmol/L (22.0-26.0); LACTATE 2.03 mmol/L (0.5-2.0); O2(CT) 7.9 mL/dL (15.0-23.0); O2Hb 85.8 % (92.0-98.0); PCO2 57.3 mmHg (35.0-45.0); pH 7.393 (7.360-7.450); sO2 86.6 % (92.0-98.0); tCO2 35.9 mmol/L (24.0-30.0)
[2017-01-02 16:18] LABS: PO2 53.3 mmHg (80.0-100.0); STICK SITE R.BRACHIAL
[2017-01-02 16:19] LABS: TIDAL VOLUME 450 ml; VDS CMV MODE cc
[2017-01-02] MEDS ORDERED: METHYLPHENIDATE5 M1 PO (17:09)
[2017-01-02] MEDS ORDERED: ZOSYN 3.3753.375 GM IV (17:10)
[2017-01-02 17:34] LABS: MCH 20.4 pg (26.0-34.0); MCHC 28.8 g/dL (28.0-37.0); MCV 70.9 fL (80.0-100.0); PLATELET COUNT 617 thou/uL (150-400); RBC 2.81 mil/uL (4.50-6.00); WBC 29.9 thou/uL (4.0-11.0)
[2017-01-02 17:36] LABS: ANION GAP 3 mmol/L (7-16); BUN 38 mg/dL (7-18); CALCIUM 9.2 mg/dL (8.5-10.1); CHLORIDE 94 mmol/L (98-107); CO2 34 mmol/L (21-32); CREATININE 0.6 mg/dL (0.7-1.3); GLUCOSE 127 mg/dL (74-106); MANUAL DIFF YES; POTASSIUM 5.5 mmol/L (3.5-5.1); SODIUM 131 mmol/L (136-145)
[2017-01-02 17:37] LABS: HEMATOCRIT 19.9 % (42.0-52.0); HEMOGLOBIN 5.7 gm/dL (14.0-18.0)
[2017-01-02 17:42] LABS: ALBUMIN 1.6 g/dL (3.4-5.0); ALKALINE PHOSPHATASE 143 U/L (46-116); DIRECT BILIRUBIN < 0.1 mg/dL (<0.1-0.3); SGOT 35 U/L (15-37); SGPT 13 U/L (30-65); TOTAL BILIRUBIN 0.2 mg/dL (<0.1-1.0); TOTAL PROTEIN 7.5 g/dL (6.4-8.2)
[2017-01-02 17:50] LABS: URINE BILIRUBIN NEGATIVE (Negative); URINE BLOOD 3+ (Negative); URINE COLOR YELLOW; URINE GLUCOSE-RANDOM* NEGATIVE (Negative); URINE KETONES NEGATIVE (Negative); URINE NITRITE NEGATIVE (Negative); URINE PROTEIN (DIPSTICK) TRACE (Negative); URINE UROBILINOGEN 0.2 E.U./dl (0.2-1.0)
[2017-01-02 18:04] LABS: CASTS None Seen /LPF (None Seen); CRYSTALS None Seen /LPF (None Seen); SQUAMOUS None Seen /LPF (0-3); URINE WBC >25 Many /HPF (0-5)
[2017-01-02 18:05] LABS: URINE RBC 3-10 Few /HPF (0-2)
[2017-01-02 18:18] LABS: ABSOLUTE NEUTROPHILS 27.2 thou/uL (1.4-8.2); TOTAL CELL COUNT 100
[2017-01-02 18:19] LABS: ANISOCYTOSIS 1+; HYPOCHROMASIA SLIGHT; POIKILOCYTOSIS SLIGHT; POLYCHROMASIA SLIGHT
[2017-01-02 18:20] LABS: MICROCYTES 2+
[2017-01-02] MEDS ORDERED: HYDROCODON-ACE1 EAC8 PO (21:20)
[2017-01-03] VITALS (74 sets, daily range): BP systolic 53–124; BP diastolic 19–91
[2017-01-03 05:08] LABS: CALCIUM 8.4 mg/dL (8.5-10.1); CREATININE 0.5 mg/dL (0.7-1.3); HEMATOCRIT 23.4 % (42.0-52.0); MCH 21.6 pg (26.0-34.0); POTASSIUM 4.9 mmol/L (3.5-5.1); RBC 3.25 mil/uL (4.50-6.00); RDW 18.6 % (10.5-14.5)
[2017-01-03 05:13] LABS: WBC 41.9 thou/uL (4.0-11.0)
[2017-01-03 05:18] LABS: INR 1.1; PROTIME 11.3 Seconds (9.3-11.4)
[2017-01-03 05:22] LABS: ABG SAMPLE TYPE ARTERIAL; BE(vivo) 4.5 mmol/L (-2 to +3); HCO3 29.8 mmol/L (22.0-26.0); LACTATE 1.54 mmol/L (0.5-2.0); O2(CT) 11.6 mL/dL (15.0-23.0); O2Hb 98.2 % (92.0-98.0); PCO2 48.5 mmHg (35.0-45.0); PO2 164.4 mmHg (80.0-100.0); STICK SITE R.RADIAL; TIDAL VOLUME 450 ml; pH 7.406 (7.360-7.450); sO2 99.1 % (92.0-98.0); tCO2 31.3 mmol/L (24.0-30.0)
[2017-01-04] VITALS (96 sets, daily range): BP systolic 60–131; BP diastolic 49–96
[2017-01-04 10:32] LABS: HEMATOCRIT 24.4 % (42.0-52.0); HEMOGLOBIN 7.2 gm/dL (14.0-18.0); MCH 21.9 pg (26.0-34.0); MCHC 29.7 g/dL (28.0-37.0); MCV 73.9 fL (80.0-100.0); RBC 3.31 mil/uL (4.50-6.00); RDW 18.9 % (10.5-14.5); WBC 38.7 thou/uL (4.0-11.0)
[2017-01-04 10:36] LABS: CALCIUM 8.6 mg/dL (8.5-10.1); CREATININE 0.5 mg/dL (0.7-1.3); POTASSIUM 3.9 mmol/L (3.5-5.1)
[2017-01-05] VITALS (79 sets, daily range): BP systolic 84–122; BP diastolic 41–91
[2017-01-05 05:26] LABS: ABG SAMPLE TYPE ARTERIAL; BE(vivo) 3.1 mmol/L (-2 to +3); HCO3 31.3 mmol/L (22.0-26.0); LACTATE 0.99 mmol/L (0.5-2.0); O2(CT) 12.3 mL/dL (15.0-23.0); O2Hb 96.5 % (92.0-98.0); PO2 102.2 mmHg (80.0-100.0); sO2 96.6 % (92.0-98.0); tCO2 33.6 mmol/L (24.0-30.0)
[2017-01-05 05:27] LABS: PCO2 72.1 mmHg (35.0-45.0); STICK SITE L.RADIAL; TIDAL VOLUME 450 ml; pH 7.256 (7.360-7.450)
[2017-01-05 05:28] LABS: ABG COMMENT A/C RATE 12
[2017-01-05 05:41] LABS: HEMATOCRIT 24.5 % (42.0-52.0); HEMOGLOBIN 7.3 gm/dL (14.0-18.0); MCH 22.1 pg (26.0-34.0); MCHC 29.7 g/dL (28.0-37.0); MCV 74.4 fL (80.0-100.0); RBC 3.29 mil/uL (4.50-6.00); RDW 19.2 % (10.5-14.5); WBC 39.8 thou/uL (4.0-11.0)
[2017-01-05 05:57] LABS: CALCIUM 8.9 mg/dL (8.5-10.1); CREATININE 0.4 mg/dL (0.7-1.3); POTASSIUM 3.9 mmol/L (3.5-5.1)
[2017-01-05 13:36] LABS: ABG SAMPLE TYPE ARTERIAL; BE(vivo) 3.4 mmol/L (-2 to +3); HCO3 30.2 mmol/L (22.0-26.0); LACTATE 1.41 mmol/L (0.5-2.0); O2(CT) 12.5 mL/dL (15.0-23.0); O2Hb 96.7 % (92.0-98.0); PCO2 59.5 mmHg (35.0-45.0); PO2 95.2 mmHg (80.0-100.0); sO2 96.6 % (92.0-98.0); tCO2 32.1 mmol/L (24.0-30.0)
[2017-01-05 13:37] LABS: STICK SITE R.RADIAL; TIDAL VOLUME 550 ml; pH 7.324 (7.360-7.450)
[2017-01-06] VITALS (91 sets, daily range): BP systolic 75–144; BP diastolic 45–93
[2017-01-06 05:43] LABS: ABG COMMENT A/C MODE; ABG SAMPLE TYPE ARTERIAL; BE(vivo) 5.4 mmol/L (-2 to +3); HCO3 31.4 mmol/L (22.0-26.0); LACTATE 1.16 mmol/L (0.5-2.0); O2(CT) 11.9 mL/dL (15.0-23.0); O2Hb 96.9 % (92.0-98.0); PCO2 54.4 mmHg (35.0-45.0); PO2 105.3 mmHg (80.0-100.0); STICK SITE R.RADIAL; TIDAL VOLUME 550 ml; pH 7.379 (7.360-7.450); sO2 97.6 % (92.0-98.0); tCO2 33.1 mmol/L (24.0-30.0)
[2017-01-06 06:33] LABS: HEMATOCRIT 24.9 % (42.0-52.0); HEMOGLOBIN 7.4 gm/dL (14.0-18.0); MCH 21.9 pg (26.0-34.0); MCHC 29.6 g/dL (28.0-37.0); MCV 74.1 fL (80.0-100.0); RBC 3.36 mil/uL (4.50-6.00); RDW 19.2 % (10.5-14.5)
[2017-01-06 06:39] LABS: WBC 23.8 thou/uL (4.0-11.0)
[2017-01-06 06:43] LABS: CALCIUM 9.5 mg/dL (8.5-10.1); CREATININE 0.5 mg/dL (0.7-1.3); POTASSIUM 3.8 mmol/L (3.5-5.1)
[2017-01-07] VITALS (37 sets, daily range): BP systolic 75–107; BP diastolic 47–81
[2017-01-07 05:32] LABS: MCHC 29.8 g/dL (28.0-37.0)
[2017-01-07 05:35] LABS: HEMATOCRIT 21.1 % (42.0-52.0); MCH 21.9 pg (26.0-34.0); MCV 73.3 fL (80.0-100.0); RBC 2.88 mil/uL (4.50-6.00); RDW 19.8 % (10.5-14.5); WBC 19.2 thou/uL (4.0-11.0)
[2017-01-07 05:43] LABS: CALCIUM 9.4 mg/dL (8.5-10.1); CREATININE 0.4 mg/dL (0.7-1.3); POTASSIUM 4.2 mmol/L (3.5-5.1)
[2017-01-07 05:48] LABS: HEMOGLOBIN 6.3 gm/dL (14.0-18.0)
[2017-01-08] VITALS (44 sets, daily range): BP systolic 83–131; BP diastolic 49–70
[2017-01-08 04:42] LABS: HEMOGLOBIN 7.6 gm/dL (14.0-18.0); MCH 22.8 pg (26.0-34.0); MCHC 30.3 g/dL (28.0-37.0); MCV 75.3 fL (80.0-100.0); RBC 3.32 mil/uL (4.50-6.00); RDW 20.7 % (10.5-14.5); WBC 17.3 thou/uL (4.0-11.0)
[2017-01-08 04:54] LABS: CALCIUM 9.6 mg/dL (8.5-10.1); CREATININE 0.5 mg/dL (0.7-1.3); POTASSIUM 4.3 mmol/L (3.5-5.1)
[2017-01-09] VITALS (31 sets, daily range): BP systolic 81–129; BP diastolic 53–81
[2017-01-09] MEDS ORDERED: MIDODRINE HCL 55 M1 PER TUBE (08:44)
[2017-01-09] MEDS ORDERED: ZOSYN 3.3753.375 GM IV (08:44)
[2017-01-09] MEDS ORDERED: DUONEB 2.5-0.5 M3 ML INH (08:44)
[2017-01-09] MEDS ORDERED: NORCO 7.5-3251 EACH PO (08:45)
[2017-01-09] MEDS ORDERED: HYDROCODON-ACE1 EAC8 PO (08:45)
[2017-01-09] MEDS ORDERED: DIGOXIN125 MCG PER TUBE (08:45)
[2017-01-09] MEDS ORDERED: ATIVAN1 MG PER TUBE (08:46)
== END 2017-01-09 16:00 | DRG 870 ==
LOC: ER 15:57 → ICU 17:26 → EROBS 17:26 → ICU 20:05
PROVIDERS: Internal Medicine; Internal Medicine Geriatric Medicine; Internal Medicine Pulmonary Disease; Nurse Practitioner
PROC: 5A1955Z Respiratory Ventilation, Greater than 96 Consecutive Hours (ICD-10-PCS; principal; 2017-01-02)
PROC: 30233N1 Transfusion of Nonautologous Red Blood Cells into Peripheral Vein, Percutaneous Approach (ICD-10-PCS; 2017-01-02)
PROC: B548ZZA Ultrasonography of Superior Vena Cava, Guidance (ICD-10-PCS; 2017-01-02)
PROC: 02HV33Z Insertion of Infusion Device into Superior Vena Cava, Percutaneous Approach (ICD-10-PCS; 2017-01-02)
DX: A41.9 Sepsis, unspecified organism (principal); J96.21 Acute and chronic respiratory failure with hypoxia; J18.9 Pneumonia, unspecified organism; R65.21 Severe sepsis with septic shock; E43 Unspecified severe protein-calorie malnutrition; J96.22 Acute and chronic respiratory failure with hypercapnia; G82.52 Quadriplegia, C1-C4 incomplete; L89.154 Pressure ulcer of sacral region, stage 4; L89.894 Pressure ulcer of other site, stage 4; J98.11 Atelectasis; M86.9 Osteomyelitis, unspecified; M86.8X0 Other osteomyelitis, multiple sites; Z99.11 Dependence on respirator [ventilator] status; I10 Essential (primary) hypertension; K21.9 Gastro-esophageal reflux disease without esophagitis; F41.9 Anxiety disorder, unspecified; G25.81 Restless legs syndrome; D64.9 Anemia, unspecified; I48.2 Chronic atrial fibrillation; Z68.34 Body mass index [BMI] 34.0-34.9, adult; L89.020 Pressure ulcer of left elbow, unstageable; L89.620 Pressure ulcer of left heel, unstageable; I73.9 Peripheral vascular disease, unspecified; L89.510 Pressure ulcer of right ankle, unstageable; D63.8 Anemia in other chronic diseases classified elsewhere; S30.813A Abrasion of scrotum and testes, initial encounter; I95.9 Hypotension, unspecified; T17.990A Other foreign object in respiratory tract, part unspecified in causing asphyxiation, initial encounter; Z88.2 Allergy status to sulfonamides; Z93.0 Tracheostomy status; Z90.3 Acquired absence of stomach [part of]; Z93.3 Colostomy status; Q54.9 Hypospadias, unspecified; Z79.899 Other long term (current) drug therapy
CPT/HCPCS: 10078; 27000

== ENCOUNTER 2017-02-09 12:49 | Inpatient (IN) | payer OTHER ==
--- NOTE | ~2017-02-09 | HC ---
[facility] [place] [address] CONSULTATION Name: JEANETTE LECHUGA Room #: 352-P ADM IN M.R.#: [id number] Admission: 02/10/17 Attend Phys: Huy Adamson Discharge: Date of : 57 Report #: [id number] THIS REPORT FOR: //name// CC: Rui Fraga DATE OF SERVICE: 02/10/2017 REFERRING PROVIDER: Rui Fraga MD. REASON FOR CONSULTATION: Chronic respiratory failure. CHIEF COMPLAINT: Malfunctioning suprapubic catheter and PEG tube. HISTORY OF PRESENT ILLNESS: Our group was asked to see the patient in consultation while hospitalized at [facility], known to us from prior admissions. He has chronic respiratory failure, on mechanical ventilatory support, unweanable from the ventilator due to quadriplegia from cervical spine injury, multiple admissions for decubitus wounds, recently here for healthcare-associated pneumonia, was admitted to get his suprapubic catheter placed and the PEG tube changed out. Currently has minimal secretions, notes no significant respiratory difficulties at this time, is awake and in no distress. ALLERGIES: INCLUDE SULFA. PAST MEDICAL HISTORY: 1. History of quadriplegia from the cervical spine injury. 2. Chronic respiratory failure due to paralysis. 3. Chronic atrial fibrillation. 4. Multiple decubitus ulcers. OUTPATIENT MEDICATIONS: Include diltiazem, Baclofen, atenolol, hydrocodone, lorazepam, famotidine, apixaban, Paxil, DuoNebs, methylphenidate, Zosyn. SOCIAL HISTORY: Lives in long-term care facility, prior tobacco user. FAMILY HISTORY: Unobtainable. REVIEW OF SYSTEMS: Rest of 12 point review of systems, significant findings as described in HPI and past medical history. PHYSICAL EXAMINATION: VITAL SIGNS: Temperature 98.0, pulse 106, respiratory rate 20, blood pressure 120/71. GENERAL: This is a middle-aged male. Awake, in no distress. EENT: Reveals a size 6 distal extended length 95 mm tracheostomy tube in place. [facility] [address] [place] [address] CONSULTATION Name: JEANETTE LECHUGA Room #: [address] [place] [address] IN M.R.#: [id number] Admission: 02/10/17 Attend Phys: Huy Adamson Discharge: Date of : 57 Report #: [id number] No surrounding erythema. LUNGS: Clear. No wheezes or crackles. CARDIOVASCULAR: Heart regular. No murmurs. ABDOMEN: Soft, nontender. PEG in place. EXTREMITIES: Lower extremity wounds are dressed with Kerlix, trace edema. NEUROLOGIC: The patient with 4/5 strength in upper extremities, with only flaccid minimal movement in the lower extremities. LABORATORY DATA: Pending. No radiographs performed. IMPRESSION: 1. Chronic respiratory failure. 2. Chronic decubitus ulcers. 3. Malfunctioning PEG tube. 4. Quadriplegia. 5. Atrial fibrillation. SUGGESTIONS: 1. Continue vent support. 2. Check chest radiograph to follow up on recent pneumonia. 3. While procedures as planned, we will continue to assist with management from a pulmonary standpoint, continue with bronchodilators. Thank you for requesting our suggestions. By: [id number] Jared Duffy MD /nt
--- NOTE | ~2017-02-09 | H ---
[facility] [place] [address] HISTORY AND PHYSICAL Name: JEANETTE LECHUGA Room #: 352-P ADM IN M.R.#: [id number] Admission: 02/10/17 Attend Phys: Huy Adamson Discharge: Date of : 57 Report #: [id number] THIS REPORT FOR: //name// CC: Mohsen Fraga DATE OF SERVICE: 02/10/2017 ATTENDING PHYSICIAN: Rui Fraga MD CHIEF COMPLAINT: Malfunctioning feeding tube and urinary incontinence. HISTORY OF PRESENT ILLNESS: The patient is a 62-year-old gentleman from [facility] ventilator unit who was admitted for evaluation of proper functioning of his feeding tube, but also consideration of suprapubic catheter for chronic urinary incontinence. He has a history of incomplete quadriplegia related an old injury and as a result, he has been ventilator dependent for a number of years. He has failed ventilator weaning trials before and has been deemed a chronic ventilator state. He has multiple wounds including osteomyelitis involving the left hip and suspected similar process involving the feet and ankles due to exposed tendon areas on wounds. In the past, he has declined amputation of the lower legs related to these nonhealing wounds. He has also been noncompliant with wound care and turning schedule of the care facility. He is hospitalized here several times with sepsis and as documented in the past in the record, he declined surgical intervention. He has DNR status and after his last hospitalization, we deemed him to be a palliative care case; however, now the issue is that the staff is having difficulty flushing and administering medications and feedings through his feeding tube. They have also had issues with urinary incontinence and apparently either bladder spasms or malfunctioning Miller catheter leading to urinary leakage around the tube, even when attempts to change to a different caliber. He is admitted now for consideration of exchange of his PEG tube and suprapubic catheter placement. PAST MEDICAL HISTORY: Quadriplegia with chronic hypoxic respiratory failure. He is chronically ventilator dependent. He has a tracheostomy tube and PEG tube. He has a colostomy in the left mid abdomen. He has a history of atrial fibrillation, GI bleed, hypertension, restless legs, anxiety, GERD, osteomyelitis of multiple wounds involving both feet and ankles, and the left ischium and hip. PAST SURGICAL HISTORY: As above, otherwise is unknown. FAMILY HISTORY: Unknown. SOCIAL HISTORY: Unknown. ALLERGIES: SULFA. [facility] [address] [place] [address] HISTORY AND PHYSICAL Name: JEANETTE LECHUGA Room #: 352-P [facility] IN M.R.#: [id number] Admission: 02/10/17 Attend Phys: Huy Adamson Discharge: Date of : 57 Report #: [id number] MEDICATIONS: Diltiazem, baclofen, Ativan, Pepcid, Paxil, digoxin, DuoNeb. REVIEW OF SYSTEMS: He is awake and alert. Denies chest pain, shortness of breath, or abdominal pain. OBJECTIVE: VITAL SIGNS: Temperature is 37.2, pulse 111, respirations 19, blood pressure 112/73, O2 sat 95% on the ventilator. GENERAL: As mentioned, he is awake and alert, in no distress. HEAD AND NECK: Unremarkable. Tracheostomy tube is in place. LUNGS: Clear anteriorly. HEART: Irregular, tachycardic. ABDOMEN: Soft, normoactive bowel sounds, colostomy left mid abdomen. PEG tube in place, there is no drainage, but he has a very long tube with black residue within the tube. EXTREMITIES: Showed no edema. NEUROLOGIC: He has incomplete quadriplegia with some spastic movement of the arms, but essentially no movement in the legs. IMAGING: EKG in tele reveal AFib. White count is 21, hemoglobin 6.6. Chemistry panel noted. KUB with flush reveals the tube to be within the stomach. ASSESSMENT: 1. Malfunctioning PEG tube. 2. Urinary incontinence. 3. Neurogenic bladder. 4. Quadriplegia. 5. Chronic hypoxic respiratory failure. 6. Ventilator dependence. 7. Chronic atrial fibrillation. 8. Chronic microcytic anemia. 9. Chronic leukocytosis. 10. Osteomyelitis of the left ischium and hip. 11. Osteomyelitis of the feet. 12. Multiple stage IV wounds. 13. Severe protein-calorie malnutrition with albumin 1.8. PLAN: The GI service has assessed him and appears that they will work towards exchanging his PEG tube. Urology has been consulted for discussion and consideration of suprapubic catheter placement. I called his care facility and his CBC is pretty chronic with a white count of 22,000 on 01/02/2017, hemoglobin around 6. He has had GI bleeding in the past and his anticoagulation has been discontinued as a result. He does have DNR status from the outside facility according to his orders and he has had DNR status here previously and so that [address] [address] HISTORY AND PHYSICAL Name: ANKUSHJEANETTE Room #: 352-P ADM IN M.R.#: [id number] Admission: 02/10/17 Attend Phys: Huy Adamson Discharge: Date of : 57 Report #: [id number] order will be reentered. Pulmonary service has been consulted to help just manage his ventilator during his stay. <ELECTRONICALLY SIGNED> By: Alvin Ortega MD 02/12/17 0747 0825 0933 Alvin Ortega MD /nt
[~2017-02-09 12:49] MED LIST changes: +DIGOXIN125 MCG PER TUBE; +DUONEB 2.5-0.5 M3 ML INH; +HYDROCODON-ACE1 EAC8 PO; +MIDODRINE HCL 55 M1 PER TUBE; +NORCO 7.5-3251 EACH PO; +ZOSYN 3.3753.375 GM IV
[2017-02-10 16:41] VITALS: BP 120/71
[2017-02-10 16:48] LABS: HEMOGLOBIN 6.6 gm/dL (14.0-18.0); MCV 72.4 fL (80.0-100.0)
[2017-02-10 16:49] LABS: HEMATOCRIT 22.2 % (42.0-52.0); MCH 21.5 pg (26.0-34.0); MCHC 29.7 g/dL (28.0-37.0); RBC 3.06 mil/uL (4.50-6.00); WBC 21.2 thou/uL (4.0-11.0)
[2017-02-10 17:01] LABS: ALBUMIN 1.8 g/dL (3.4-5.0); CALCIUM 9.4 mg/dL (8.5-10.1); CREATININE 0.5 mg/dL (0.7-1.3); POTASSIUM 4.1 mmol/L (3.5-5.1); TOTAL BILIRUBIN 0.3 mg/dL (<0.1-1.0); TOTAL PROTEIN 7.4 g/dL (6.4-8.2)
[2017-02-10 21:47] VITALS: BP 107/67
[2017-02-11 00:06] VITALS: BP 116/73
[2017-02-11 04:10] VITALS: BP 91/58
[2017-02-11 08:13] VITALS: BP 112/73
[2017-02-11 12:15] VITALS: BP 104/82
[2017-02-11 16:29] VITALS: BP 104/67
[2017-02-11 19:34] VITALS: BP 115/69
[2017-02-12 04:05] VITALS: BP 111/73
[2017-02-12 07:45] VITALS: BP 111/65
[2017-02-12 14:35] VITALS: BP 119/77
[2017-02-12 19:05] VITALS: BP 117/73
[2017-02-13 04:43] VITALS: BP 116/72
[2017-02-13 07:43] VITALS: BP 116/72
[2017-02-13 08:38] VITALS: BP 106/68
[2017-02-13 11:17] LABS: INR 1.1; PROTIME 11.1 Seconds (9.3-11.4)
[2017-02-13] MEDS ORDERED: NORCO 7.5-3251 EACH PO (12:19)
[2017-02-13] MEDS ORDERED: CARDIZEM30 MG PER TUBE (12:19)
[2017-02-13] MEDS ORDERED: ATIVAN1 MG PER TUBE (12:20)
[2017-02-13 15:57] VITALS: BP 112/65
== END 2017-02-13 18:43 | DRG 393 ==
LOC: 3W 12:49
PROVIDERS: Nurse Practitioner; Radiology Diagnostic Radiology
PROC: 5A1945Z Respiratory Ventilation, 24-96 Consecutive Hours (ICD-10-PCS; principal; 2017-02-10)
PROC: 0T9B30Z Drainage of Bladder with Drainage Device, Percutaneous Approach (ICD-10-PCS; 2017-02-13)
DX: K94.23 Gastrostomy malfunction (principal); G82.50 Quadriplegia, unspecified; E43 Unspecified severe protein-calorie malnutrition; J96.11 Chronic respiratory failure with hypoxia; M86.8X7 Other osteomyelitis, ankle and foot; M86.8X0 Other osteomyelitis, multiple sites; Z99.11 Dependence on respirator [ventilator] status; Y83.8 Other surgical procedures as the cause of abnormal reaction of the patient, or of later complication, without mention of misadventure at the time of the procedure; Y82.8 Other medical devices associated with adverse incidents; I10 Essential (primary) hypertension; G25.81 Restless legs syndrome; F41.9 Anxiety disorder, unspecified; K21.9 Gastro-esophageal reflux disease without esophagitis; I48.2 Chronic atrial fibrillation; L89.90 Pressure ulcer of unspecified site, unspecified stage; N31.9 Neuromuscular dysfunction of bladder, unspecified; R32 Unspecified urinary incontinence; D50.9 Iron deficiency anemia, unspecified; Z66 Do not resuscitate; N36.8 Other specified disorders of urethra; Z88.2 Allergy status to sulfonamides; Z87.19 Personal history of other diseases of the digestive system; Z79.01 Long term (current) use of anticoagulants; Z79.899 Other long term (current) drug therapy; Z23 Encounter for immunization
CPT/HCPCS: 10779

== ENCOUNTER 2017-03-15 14:21 | Inpatient (IN) | payer OTHER, MEDICAID ==
[2017-03-15] VITALS (17 sets, daily range): BP systolic 77–104; BP diastolic 60–83
[~2017-03-15] VITALS: Ht 182.9 cm; Wt 90.9 kg
--- NOTE | ~2017-03-15 | 2DMMODE ---
[facility] [address] [place] [address] 2 D/M-MODE ECHOCARDIOGRAM Name: JEANETTE LECHUGA Room #: 238-P ADM IN M.R.#: [id number] Admission: 03/15/17 Attend Phys: Huy Kat Discharge: Date of : 57 Date of Service: 03/20/17 1228 Report #: [id number] THIS REPORT FOR: //name// APPROVED REPORT Study performed: 03/20/2017 10:32:21 EXAM: Comprehensive 2D, Doppler, and color-flow Echocardiogram Patient Location: ICU Room #: 238 Status: routine BSA: 2.03 BP: 102/69 mmHg Other Information Study Quality: Technically Difficult/Technically Limited Technically limited study due to lung disease, inability to position patient, patient on ventilator, PEG tube. Doppler measurements not taken due to limited views/inaccurate doppler angles. Indications Hx afib, Rule out shunt Echo Enhancing Agent Indication: Rule out Shunt Agent(s) / Amount(s) Used: Agitated Saline 6 cc 2D Dimensions LVEF(%): 71.72 (>50%) IVSd: 10.72 (7-11mm) LVOT Diam: 19.35 (18-24mm) LVDd: 34.56 mm PWd: 12.83 (7-11mm) Ascending Ao: 29.41 (22-36mm) LVDs: 20.74 (25-40mm) Aortic Root: 31.90 mm IVC: 18.00 mm Fajardo's LVEF: 71.72 % Pulmonary Valve PV Peak Hood.: 1.48 m/s PV Peak Gr.: 8.77 mmHg Tricuspid Valve TR Peak Hood.: 3.00 m/s RAP Estimate: 5.00 mmHg TR Peak Gr.: 35.98 mmHg PA Pressure: 40.00 mmHg [facility] [place] [address] [address] 2 D/M-MODE ECHOCARDIOGRAM Name: JEANETTE LECHUGA Room #: 238- ADM IN M.R.#: [id number] Admission: 03/15/17 Attend Phys: Huy Kat Discharge: Date of : 57 Date of Service: 03/20/17 1228 Report #: [id number] Left Ventricle The left ventricle is normal size. Regional wall motion is not well visualized but grossly normal. There is normal left ventricular wall thickness. The left ventricular systolic function is normal. The left ventricular ejection fraction is within the normal range. LVEF is 65-70%. This study is not technically sufficient to allow evaluation of the LV diastolic function. Atria Injection of bubbles documented no interatrial shunt. Aortic Valve The aortic valve is not well visualized. No aortic regurgitation is visualized. Unable to obtain accurate doppler of the aortic valve. Mitral Valve Mitral valve appears grossly normal in structure. There is no mitral valve regurgitation noted. Unable to obtain accurate doppler of the mitral valve. Tricuspid Valve The tricuspid valve appears grossly normal in structure. Trace to mild tricuspid regurgitation noted. PAP is estimated at 40 mmHg. Pulmonic Valve Pulmonic valve is not well visualized. Great Vessels The aortic root is normal in size. IVC is normal in size and collapses >50% with inspiration. Pericardium There is no pericardial effusion. <Conclusion> Very limited study The left ventricular systolic function is normal. LVEF is 65-70%. Injection of bubbles documented no interatrial shunt. The aortic valve is not well visualized. Mitral valve appears grossly normal in structure. No mitral valve regurgitation noted. [facility] [address] [place] [address] 2 D/M-MODE ECHOCARDIOGRAM Name: JEANETTE LECHUGA Room #: 238-P [facility] IN M.R.#: [id number] Admission: 03/15/17 Attend Phys: Huy Kat Discharge: Date of : 57 Date of Service: 03/20/17 1228 Report #: [id number] Pulmonary artery pressure could not be reliably ascertained There is no pericardial effusion. <ELECTRONICALLY SIGNED> By: Freddie Thacker MD, [facility] 03/20/17 1228 122 1228 Freddie Thacker MD, FACC /INF
--- NOTE | ~2017-03-15 | HC ---
[facility] [place] [address] CONSULTATION Name: JEANETTE LECHUGA Room #: 238-P [facility] IN M.R.#: [id number] Admission: 03/15/17 Attend Phys: Kevin Croft MD Discharge: Date of : 57 Report #: [id number] THIS REPORT FOR: //name// CC: Mohsen Croft REASON FOR CONSULTATION: I was asked to evaluate concerning septic shock. HISTORY OF PRESENT ILLNESS: The patient is a 62-year-old hospitalized recently 02/23 through 03/06 with combination of issues including partial small-bowel obstruction, C. difficile positive stools with diarrhea, GI bleed, probable ventilator-associated pneumonia in a patient with failure to wean from the ventilator and extensive chronic osteomyelitis involving both lower extremities [id number] and his pelvis. He was stabilized at his last admission and was discharged on enteral vancomycin. He returned to [facility] ventilatory unit. He returns on 03/15, with abdominal distention and copious output from his PEG tube. Decreased output from his colostomy. He had atrial fibrillation with rapid ventricular response. His PEG tube was placed to suction and over 4 liters of green fluid was drained. He remained tachycardic and hypotensive. He has received IV fluids through the night close to 6 liters. Also, received albumin. He is on low dose Levophed drip. His heart rate now is controlled. His urine output is about 30 mL per hour. He is alert and cooperative and in no distress on the ventilator. Further details from skilled nursing does state he was vomiting green fluid prior to his transfer. PAST MEDICAL HISTORY: Nonhealing wounds to his hips, pelvis and lower extremities [id number] with underlying chronic osteomyelitis. The patient has refused surgical intervention and amputation. Respiratory failure with quadriplegia and ventilatory dependence. Obstructive sleep apnea, anxiety, gastroesophageal reflux, heart failure, hypertension, and atrial fibrillation. C. difficile colitis. Partial small-bowel obstruction previously. ALLERGIES: SULFA. MEDICATIONS: As noted on his JUN. He was continued on metronidazole and started on Zosyn last night. Due to his bowel obstruction, the vancomycin was put on hold. FAMILY HISTORY: Noncontributory. SOCIAL HISTORY: jail resident, otherwise noncontributory. REVIEW OF SYSTEMS: No chest pain. Moderate tracheal secretions. No change in his ventilatory requirements. PHYSICAL EXAMINATION: [facility] [address] [place] [address] CONSULTATION Name: JEANETTE LECHUGA Room #: 238-P [facility] IN M.R.#: [id number] Admission: 03/15/17 Attend Phys: Kevin Croft MD Discharge: Date of : 57 Report #: [id number] VITAL SIGNS: Afebrile, blood pressure 76/57, MAP of 64-78 this a.m. He is on 4 mcg per minute of Levophed. FiO2 of 45%. GENERAL: He was alert and cooperative. IV site PICC was unremarkable. HEENT: Tracheostomy unremarkable. CHEST: Clear anteriorly. HEART: Irregular. ABDOMEN: Soft, was nontender, ostomy left abdomen with liquid stool, green drainage from his PEG tube. EXTERNAL GENITALIA: Unremarkable. SKIN: Wounds were dressed. NEUROLOGIC: Quadriplegic. LABORATORY STUDIES: Sodium 143, potassium 3.0, bicarbonate 39, and creatinine 1.1. MRSA screen negative. Urinalysis, many wbc's, many bacteria. Liver function test normal. Hemoglobin 9.1, WBC 12.5, platelet count pending. Lactate 1.4. Procalcitonin 4. CT scan of the abdomen and pelvis, large amount of fluid distending the stomach, small-bowel down to the area of obstruction. The colon was not thickened. There was no increased fluid in the colon. Suprapubic catheter in place. Gastrostomy tube in place, basilar atelectasis versus pneumonia improved from previous, chronic changes to his pelvis bones. IMPRESSION: Shock due to sepsis and hypovolemia in the setting of small-bowel obstruction. He also has chronic basilar atelectasis and infiltrates in the setting of chronic ventilatory requirement and quadriplegia. He has Clostridium difficile positive stools. We will recommend broad antibiotic coverage for the next 24-48 hours pending resuscitative measures. General surgery has seen the patient and is following. So far, conservative measures are being undertaken. No plan for surgery yet. Discussed with nursing staff. We will continue fluid resuscitation output. <ELECTRONICALLY SIGNED> By: Kain Fraga MD 03/18/17 [id number] [id number] Kain Fraga MD /nt
--- NOTE | ~2017-03-15 | P ---
[facility] [place] [address] PROCEDURE REPORT Name: JEANETTE LECHUGA Room #: 351-P ADM IN M.R.#: [id number] Admission: 03/15/17 Attend Phys: Kevin Croft MD Discharge: Date of : 57 Report #: [id number] THIS REPORT FOR: //name// CC: Mohsen Croft DATE OF SERVICE: 03/17/2017 PERSONAL PHYSICIAN: Dr. Kevin Croft. CHIEF COMPLAINT: Decubitus ulcer of left lateral lower extremity. HISTORY OF PRESENT ILLNESS: This is a 62-year-old white male with a history of multiple pressure ulcerations who is readmitted to the hospital for pneumonia and possible small-bowel obstruction. We have followed this patient for a prolonged period of time for multiple decubitus ulcers on lower extremities. The patient has an unstageable decubitus ulcer in his left lateral lower extremity with loose eschar, which is necrotic, requiring debridement. PREPROCEDURE DIAGNOSES: 1. Unstageable decubitus ulcer, left lateral lower extremity with necrotic eschar. 2. Paraplegia. 3. Generalized debility. POSTPROCEDURE DIAGNOSES: 1. Unstageable decubitus ulcer, left lateral lower extremity with necrotic eschar. 2. Paraplegia. 3. Generalized debility. DESCRIPTION OF PROCEDURE: After timeout was taken, verbal consent was obtained. The patient had excisional debridement down to and including subcutaneous tissue with removal 100% of the ulcer and eschar. This involved both viable and nonviable tissue. Preprocedure measurements were 10.0 x 3.0 x 0.1 cm. Postprocedure measurements were 10.0 x 3.0 x 0.5 cm. Topical lidocaine used for the anesthetic. Bleeding was minimal, easily controlled with pressure and silver nitrate cauterization. The patient tolerated procedure well. Post-procedure, the patient had dressing placed over the ulcer site. Total amount of subcutaneous excisional debridement performed was 30 square cm. <ELECTRONICALLY SIGNED> By: Chip Haile MD 03/30/17 1132 1135 1628 Chip Haile MD /nt
--- NOTE | ~2017-03-15 | HC ---
[facility] [place] [address] CONSULTATION Name: JEANETTE LECHUGA Room #: 238-P [facility] IN M.R.#: [id number] Admission: 03/15/17 Attend Phys: Kevin Croft MD Discharge: Date of : 57 Report #: [id number] THIS REPORT FOR: //name// CC: Mohsen Croft DATE OF SERVICE: 03/16/2017 PRIMARY CARE PHYSICIAN: Dr. Kevin Croft. REFERRAL PHYSICIAN: Dr. Kevin Croft. REASON FOR REFERRAL: Acute on chronic respiratory failure. HISTORY OF PRESENT ILLNESS: The patient is a 62-year-old white male who was readmitted with multiple problems including partial small-bowel obstruction, C. difficile colitis and diarrhea. He is on chronic mechanical ventilation. A pulmonary consultation was requested. The patient has a complicated medical history. He is quadriplegic with dependence on mechanical ventilator. He has obstructive sleep apnea, gastroesophageal reflux disease, chronic heart failure, atrial fibrillation. PAST MEDICAL HISTORY: Chronic small bowel obstructions. Because of his quadriplegia, he has had several nonhealing wounds involving his hips, pelvis, lower extremities along with chronic osteomyelitis. The patient has refused surgical treatment including amputation in the past. PAST SURGICAL HISTORY: Includes status post PEG, tracheostomy. ALLERGIES: SULFA, reactions unspecified. MEDICATIONS: List reviewed in the MAR. FAMILY HISTORY: Unobtainable. SOCIAL HISTORY: He is a resident at a long-term care facility. He has smoked in the past. REVIEW OF SYSTEMS: Deferred as the patient is trached. PHYSICAL EXAMINATION: GENERAL: He is awake, in no apparent distress. VITAL SIGNS: Temperature is 97 degrees Fahrenheit, pulse is 110, respiratory rate is 16, blood pressure is 100-80 mmHg systolic, saturation 96%. [facility] [address] [address] CONSULTATION Name: JEANETTE LECHUGA Room #: 238-P [facility] IN ..#: [id number] Admission: 03/15/17 Attend Phys: Kevin Croft MD Discharge: Date of : 57 Report #: [id number] HEENT: Normocephalic, atraumatic. NECK: Supple without any lymphadenopathy or thyromegaly, status post tracheostomy. CHEST: Breath sounds are fair with decreased breath sounds in the bases. Few scattered crackles. No wheezes. CARDIOVASCULAR: Normal S1, S2. No murmurs or gallop. There is no JVD. There is no carotid bruit. Pulses are 2+/4+ bilaterally. ABDOMEN: Moderately distended, but soft. Positive for PEG tube placement. GENITOURINARY: Deferred. RECTAL: Deferred. EXTREMITIES: Remarkable for marked muscle atrophy, upper extremity contractures, but no cyanosis or clubbing. Trace edema bilaterally. LABORATORY: CT abdomen and pelvis shows a distal mechanical small-bowel obstruction. Lactic acid is 1. Procalcitonin is 4.0. LABORATORY DATA: Portable chest x-ray shows questionable left lower lobe infiltrates. Tracheostomy is in appropriate position. Right lung field and left upper lobe is otherwise clear. Electrolytes: Sodium 143, potassium 3.0, chloride 99, CO2 is 39, BUN is 41, creatinine 1.0. Liver function enzymes are grossly unremarkable. WBC 12,500, hemoglobin 9.1, platelets mildly elevated. Albumin 2.3. Arterial blood gas revealed pH 7.52, pCO2 of 52, pO2 of 140 on FiO2 of 50%. IMPRESSION: 1. Acute on chronic respiratory failure. 2. Small-bowel obstruction, distal. 3. Quadriplegia, ventilator dependent. 4. Chronic atrial fibrillation, rapid ventricular response. 5. Hypotension, suspect due to severe sepsis, status post volume resuscitation. 6. Multiple chronic decubitus wounds along with chronic osteomyelitis. The patient has refused surgical treatment including amputation in the past. RECOMMENDATION: We will continue mechanical ventilation. Continue antibiotics per Infectious Disease, will need nutritional support. Agree with sepsis protocol with IV fluid replacement. DVT and GI prophylaxis will be addressed. Thank you for this consultation. <ELECTRONICALLY SIGNED> By: Vic Guevara MD 03/17/17 1718 1707 2258 Vic Guevara MD /nt
--- NOTE | ~2017-03-15 | EKG ---
[address] [address] ELECTROCARDIOGRAM REPORT Name: JEANETTE LECHUGA Room #: 238-P ADM IN M.R.#: [id number] Admission: 03/15/17 Attend Phys: Kevin Croft MD Discharge: Date of : 57 Report #: [id number] THIS REPORT FOR: //name// [facility] ED Test Date: 2017-03-15 Test Time: 14:37:30 Pat Name: JEANETTE LECHUGA Department: Room: 238 Gender: M Writing Manager: Colleen MIGUEL : 1955 Requested By: Stepan Jin Order Number: [id number] MD: Avtar Flannery Measurements Intervals [place] Rate: 177 P: MA: QRS: 98 QRSD: 83 T: -60 QT: 275 QTc: 472 Interpretive Statements Atrial fibrillation with rapid V-rate Consider RVH w/ secondary repol abnormality ST depression, probably rate related Compared to ECG 02/23/2017 15:32:57 No significant changes Electronically Signed On 03-15-2017 21:38:24 CTE TEACHER by Avtar Flannery [email or web address] <ELECTRONICALLY SIGNED> By: Avtar Flannery MD 03/15/17 2138 1437 143 Avtar Flannery MD /EPI
--- NOTE | ~2017-03-15 | HC ---
[facility] [place] [address] CONSULTATION Name: JEANETTE LECHUGA Room #: 238-P [facility] IN M.R.#: [id number] Admission: 03/15/17 Attend Phys: Kevin Croft MD Discharge: Date of : 57 Report #: [id number] THIS REPORT FOR: //name// CC: Mohsen Croft DATE OF SERVICE: 03/15/2017 REFERRING PROVIDER: Kevin Croft MD REASON FOR CONSULT: Abdominal pain. HISTORY OF PRESENT ILLNESS: The patient is a 62-year-old chronically ill male who is ventilator dependent through a tracheostomy and has a PEG tube and a colostomy, who presented to the emergency room in transfer from [facility] secondary to abdominal distention, pain and green drainage around his PEG tube. In addition, the patient was noted to be extremely tachycardic and was found to be in atrial fibrillation with RVR. The patient was recently admitted for a similar event with concern for a small-bowel obstruction that reportedly cleared with conservative management. Upon transfer to the emergency room, his PEG tube was hooked to low intermittent suction and he has had greater than 2 liters of output thus far with significant improvement in his abdominal distention. Workup in the form of laboratories and a CT scan of the abdomen and pelvis were obtained. The patient's labs showed a normal lactic acid of 1.0, although he does have a mild leukocytosis with a white blood cell count of 19.[address] scan showed markedly dilated stomach and proximal small-bowel with a distal small-bowel obstruction suspected. The patient has been transitioned to the ICU and I was asked to evaluate from a surgical standpoint. PAST MEDICAL HISTORY: Quadriplegia, chronic respiratory failure, status post tracheostomy with ventilator dependency, obstructive sleep apnea, GERD, hypertension, heart failure, atrial fibrillation on multiple prior occasions and multiple nonhealing decubitus wounds. MEDICATIONS: Digoxin, midodrine, Tylenol, Ativan, [place], vancomycin, diltiazem, ipratropium, albuterol, famotidine, Paxil, and Zofran. ALLERGIES: To SULFA. FAMILY HISTORY: Reviewed and noncontributory. SOCIAL HISTORY: The patient does not currently utilize tobacco, alcohol, or illicit drugs. REVIEW OF SYSTEMS: [facility] [address] [address] CONSULTATION Name: JEANETTE LECHUGA Room #: 238-P [facility] IN M.R.#: [id number] Admission: 03/15/17 Attend Phys: Kevin Croft MD Discharge: Date of : 57 Report #: [id number] GENERAL: The patient denies nocturnal fevers or chills. HEENT: No change in vision or change in hearing. NECK: No swelling or difficulty swallowing. HEART: No chest pain or palpitations. LUNGS: No cough or shortness of breath. ABDOMEN: No real abdominal pain, nausea or vomiting, but markedly distended. GENITOURINARY: No dysuria or hematuria. ENDOCRINE: No polyuria or polydipsia. HEMATOLOGIC: No history of bleeding or easy bruising. EXTREMITIES: Significant history of weakness as he is quadriplegic. NEUROLOGIC: No history of syncope or near syncopal episodes. SKIN AND INTEGUMENT: Multiple decubitus wounds. PSYCHIATRIC: History of depression and anxiety. PHYSICAL EXAMINATION: VITAL SIGNS: Temperature was 99.3, pulse 148, respirations 24, and blood pressure 112/79. GENERAL: He is alert, in no acute distress. HEENT: Normocephalic, atraumatic. Pupils are equal, round, and reactive to light. NECK: Supple without lymphadenopathy. Tracheostomy is intact. HEART: Irregularly irregular and extremely tachycardic. LUNGS: Coarse breath sounds to the bilateral lung shine throughout. ABDOMEN: Soft, moderately distended, nontender to palpation. He has hypoactive bowel sounds. No guarding, no rebound, no peritoneal signs or symptoms. GENITOURINARY: Normal external male genitalia. EXTREMITIES: No clubbing or cyanosis. He does have 1+ edema of the bilateral lower extremities. NEUROLOGIC: Cranial nerves 2-12 are grossly intact. He is quadriplegic. PSYCHIATRIC: Normal mood and affect. SKIN AND INTEGUMENT: Multiple dependent decubitus wounds that are currently dressed at this time. LABORATORY AND X-RAY DATA: CBC shows white blood cell count 19.0 thousand, hemoglobin 11.4, and platelets 617,000. He has a left shift of 80% neutrophils. Creatinine is 1.3. Liver function enzymes largely normal with his bilirubin is 0.4, albumin is critically low at 2.4, lactic acid is normal at 1.0. CT scan of the abdomen and pelvis as per HPI shows a markedly distended stomach and proximal small-bowel with decompression distally consistent with a mechanical small-bowel obstruction. ASSESSMENT AND PLAN: A 62-year-old male who is chronically ill with quadriplegia and ventilator dependency from chronic respiratory failure who has severe protein-calorie malnutrition and multiple dependent decubitus wounds and now shows evidence of a recurrent small-bowel obstruction. The patient's PEG tube will be left to low intermittent suction for full decompression of his [address] [address] CONSULTATION Name: JEANETTE LECHUGA Room #: 238-P ADM IN M.R.#: [id number] Admission: 03/15/17 Attend Phys: Kevin Croft MD Discharge: Date of : 57 Report #: [id number] proximal enteric tract and as he has a normal lactic acid and a soft abdomen with no peritonitis, my concern for ischemia is quite low at this time. I did spend greater than 60 minutes discussing this with the patient in detail as well as with the nursing staff regarding the plan for conservative management moving forward. I will continue with serial abdominal exams, radiographs as indicated and we will follow closely throughout his hospital course. I sincerely appreciate this consult. <ELECTRONICALLY SIGNED> By: Hien Hartley MD, FACS 03/17/17 0745 1126 [id number] Hien Hartley MD, FACS /nt
--- NOTE | ~2017-03-15 | H ---
[facility] [place] [address] HISTORY AND PHYSICAL Name: JEANETTE LECHUGA Room #: 238-P [facility] IN M.R.#: [id number] Admission: 03/15/17 Attend Phys: Kevin Croft MD Discharge: Date of : 57 Report #: [id number] THIS REPORT FOR: //name// CC: Mohsen Croft DATE OF SERVICE: 03/15/2017 CHIEF COMPLAINT: Abdominal pain. HISTORY OF PRESENT ILLNESS: The patient is a 62-year-old gentleman sent back from [facility] for evaluation of nausea and vomiting. The report was noted green bile draining out from around the PEG tube and difficulty infusing his tube feeding. There were reports of minimal output in his colostomy bag in the left mid abdomen. He was just hospitalized for a number of complications including GI issues with PEG malfunction and distal small-bowel obstruction. At the time of discharge last week, clinically and by CT, it appeared his obstruction had resolved. PAST MEDICAL HISTORY: Chronic respiratory failure, chronic ventilator dependence. He has failed ventilator weaning trials. He has multiple nonhealing wounds. He has declined surgical intervention and amputation. Osteomyelitis of the left hip, atrial fibrillation, GI bleed with anticoagulation and quadriplegia from an old injury. He has had a recent diagnosis of C. diff colitis. PAST SURGICAL HISTORY: He has had a ostomy placement, bowel surgery, a PEG tube and trach. FAMILY HISTORY: Noncontributory. SOCIAL HISTORY: Unknown. He has no code status. ALLERGIES: SULFA. MEDICATIONS: Vancomycin oral, midodrine, digoxin, diltiazem, hydrocodone, Paxil, Ativan, Pepcid and Zofran. REVIEW OF SYSTEMS: He denies abdominal pain, nausea, vomiting or shortness of breath. PHYSICAL EXAMINATION: VITAL SIGNS: Temperature 37.1, pulse 106, respirations 17, blood pressure 81/61 and O2 sat 98% on the ventilator. GENERAL: He is awake and alert, in no distress. [facility] [address] [place] [address] HISTORY AND PHYSICAL Name: JEANETTE LECHUGA Room #: [facility] IN M.R.#: [id number] Admission: 03/15/17 Attend Phys: Kevin Croft MD Discharge: Date of : 57 Report #: [id number] HEAD AND NECK: Unremarkable. Trach in place. HEART: Irregular, tachy. LUNGS: Clear anteriorly. ABDOMEN: Hypoactive bowel sounds in the left flank. He has got tympanic bowel sounds in the right lower quadrant. There is green bile draining into the ostomy bag. EXTREMITIES: He has multiple wounds on heels and lateral legs, bilateral. There is a large wound on the left hip and ischial area. He has incomplete paraplegia. LABORATORY DATA: Lab and CT reviewed. ASSESSMENT: 1. Distal small-bowel obstruction. 2. Chronic respiratory failure. 3. Ventilator dependence. 4. Chronic atrial fibrillation, now with rapid ventricular response due to the above. 5. Recent Clostridium difficile colitis. 6. Chronic osteomyelitis of the left hip and ischium. 7. 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 8. Peripheral artery disease. 9. Incomplete quadriplegia. PLAN: Symptomatic care in ICU for now. He has been assessed by multiple consultants, including the surgery team. Bowel rest with IV fluid support. He has had GI bleed with anticoagulation in the past and with wounds, he has contraindications for both mechanical and pharmacologic DVT prophylaxis. His prognosis is extremely poor. There are no plans to attempt ventilator weaning and this is a chronic state. The wounds have been addressed multiple times in the past and he has refused surgical intervention including amputation and has documented noncompliance with wound care at the facility, and therefore, these will be treated palliatively. <ELECTRONICALLY SIGNED> By: Alvin Ortega MD 03/17/17 0904 [id number] Alvin Ortega MD /nt
[~2017-03-15 14:21] MED LIST changes: +ATIVAN0.5 MG PO; +VANCOMYCIN HCL10 GM PER TUBE
[2017-03-15 15:33] LABS: HEMATOCRIT 35.9 % (42.0-52.0); HEMOGLOBIN 11.4 gm/dL (14.0-18.0); MCH 24.4 pg (26.0-34.0); MCHC 31.7 g/dL (28.0-37.0); MCV 77.2 fL (80.0-100.0); PLATELET COUNT 617 thou/uL (150-400); RBC 4.65 mil/uL (4.50-6.00); RDW 25.4 % (10.5-14.5)
[2017-03-15 15:43] LABS: ANION GAP 4 mmol/L (7-16); BUN 40 mg/dL (7-18); CALCIUM 10.9 mg/dL (8.5-10.1); CHLORIDE 88 mmol/L (98-107); CO2 42 mmol/L (21-32); CREATININE 1.3 mg/dL (0.7-1.3); GLUCOSE 144 mg/dL (74-106); SODIUM 134 mmol/L (136-145)
[2017-03-15 15:51] LABS: ALBUMIN 2.4 g/dL (3.4-5.0); SGOT 17 U/L (15-37); SGPT 15 U/L (30-65); TOTAL BILIRUBIN 0.4 mg/dL (<0.1-1.0); TROPONIN-I < 0.04 ng/mL (<0.06)
[2017-03-15 15:59] LABS: ANISOCYTOSIS 2+; HYPOCHROMASIA 1+; MICROCYTES 1+; POLYCHROMASIA OCCASIONAL; TARGET CELLS OCCASIONAL
[2017-03-15 22:30] LABS: BE(vivo) 17.4 mmol/L (-2 to +3); HCO3 42.4 mmol/L (22.0-26.0); PO2 140.7 mmHg (80.0-100.0); pH 7.529 (7.360-7.450)
[2017-03-15 22:43] LABS: HEMATOCRIT 31.4 % (42.0-52.0); MCH 24.3 pg (26.0-34.0); MCHC 31.7 g/dL (28.0-37.0); MCV 76.5 fL (80.0-100.0); RBC 4.11 mil/uL (4.50-6.00); RDW 25.1 % (10.5-14.5); WBC 14.6 thou/uL (4.0-11.0)
[2017-03-15 22:54] LABS: CALCIUM 9.4 mg/dL (8.5-10.1); CREATININE 1.3 mg/dL (0.7-1.3); POTASSIUM 4.4 mmol/L (3.5-5.1)
[2017-03-15 22:58] LABS: APTT 32.2 Seconds (24.5-32.8); FIBRINOGEN 346.3 mg/dL (210-360); INR 1.2; PROTIME 12.5 Seconds (9.3-11.4)
[2017-03-15 23:00] LABS: ALBUMIN 2.2 g/dL (3.4-5.0); TOTAL BILIRUBIN 0.4 mg/dL (<0.1-1.0); TOTAL PROTEIN 7.1 g/dL (6.4-8.2)
[2017-03-16] VITALS (86 sets, daily range): BP systolic 67–120; BP diastolic 50–84
[2017-03-16 00:48] LABS: ABSOLUTE NEUTROPHILS 12.4 thou/uL (1.4-8.2); ANISOCYTOSIS 2+; HYPOCHROMASIA 1+; MICROCYTES 2+
[2017-03-16 00:49] LABS: PLATELET COUNT ND thou/uL (150-400)
[2017-03-16 03:02] LABS: CREATININE 1.2 mg/dL (0.7-1.3)
[2017-03-16 03:07] LABS: POTASSIUM 3.3 mmol/L (3.5-5.1)
[2017-03-16 03:40] LABS: URINE BLOOD 3+ (Negative); URINE GLUCOSE-RANDOM* NEGATIVE (Negative); URINE KETONES TRACE (Negative); URINE NITRITE-REFLEX NEGATIVE (Negative); URINE PROTEIN (DIPSTICK) 1+ (Negative); URINE UROBILINOGEN 0.2 E.U./dl (0.2-1.0)
[2017-03-16 03:50] LABS: ICTOTEST (BILI CONFIRMATORY) Negative (Negative); URINE BILIRUBIN NEGATIVE (Negative); URINE CLARITY CLOUDY; URINE COLOR DARK YELLOW; URINE LEUKOCYTES-REFLEX 2+ (Negative)
[2017-03-16 03:59] LABS: HEMATOCRIT 29.3 % (42.0-52.0); HEMOGLOBIN 9.1 gm/dL (14.0-18.0); MCH 23.6 pg (26.0-34.0); MCHC 30.9 g/dL (28.0-37.0); MCV 76.2 fL (80.0-100.0); RBC 3.85 mil/uL (4.50-6.00); RDW 25.2 % (10.5-14.5); WBC 12.5 thou/uL (4.0-11.0)
[2017-03-16 04:20] LABS: ALBUMIN 2.3 g/dL (3.4-5.0); CALCIUM 9.2 mg/dL (8.5-10.1); CREATININE 1.2 mg/dL (0.7-1.3); POTASSIUM 3.5 mmol/L (3.5-5.1); TOTAL BILIRUBIN 0.6 mg/dL (<0.1-1.0); TOTAL PROTEIN 7.2 g/dL (6.4-8.2)
[2017-03-16 04:28] LABS: BACTERIA-REFLEX >30 Many /HPF (None Seen)
[2017-03-16 04:29] LABS: CALCIUM OXALATE 4-10 Moderate /LPF (None Seen); MUCUS >6 Heavy strn/LPF (None Seen); SQUAMOUS 0-3 Few /LPF (0-3)
[2017-03-16 04:36] LABS: HYALINE CASTS >10 Many /LPF (None Seen)
[2017-03-16 04:37] LABS: URINE WBC-REFLEX >25 Many /HPF (0-5)
[2017-03-16] MEDS ORDERED: ONDANSETRON HCL4 M2 PO (05:15)
[2017-03-16 07:27] LABS: CALCIUM 8.9 mg/dL (8.5-10.1); CREATININE 1.1 mg/dL (0.7-1.3)
[2017-03-16 08:55] LABS: ABSOLUTE NEUTROPHILS 10.6 thou/uL (1.4-8.2); PLATELET ESTIMATE NORMAL
[2017-03-16 08:57] LABS: ANISOCYTOSIS 1+; HYPOCHROMASIA 1+
[2017-03-16 09:06] LABS: PLATELET COUNT 345 thou/uL (150-400)
[2017-03-17] VITALS (63 sets, daily range): BP systolic 78–160; BP diastolic 60–133
[2017-03-17 05:22] LABS: BE(vivo) 8.3 mmol/L (-2 to +3); HCO3 32.3 mmol/L (22.0-26.0); PO2 221.1 mmHg (80.0-100.0); pH 7.494 (7.360-7.450); sO2 99.5 % (92.0-98.0)
[2017-03-17 05:46] LABS: HEMATOCRIT 29.4 % (42.0-52.0); HEMOGLOBIN 8.8 gm/dL (14.0-18.0); MCH 23.9 pg (26.0-34.0); MCHC 30.1 g/dL (28.0-37.0); MCV 79.6 fL (80.0-100.0); RBC 3.69 mil/uL (4.50-6.00); WBC 12.4 thou/uL (4.0-11.0)
[2017-03-17 06:08] LABS: ALBUMIN 2.1 g/dL (3.4-5.0); CALCIUM 9.1 mg/dL (8.5-10.1); CREATININE 0.7 mg/dL (0.7-1.3); POTASSIUM 3.5 mmol/L (3.5-5.1); TOTAL BILIRUBIN 0.3 mg/dL (<0.1-1.0); TOTAL PROTEIN 6.6 g/dL (6.4-8.2)
[2017-03-18] VITALS (48 sets, daily range): BP systolic 81–139; BP diastolic 52–114
[2017-03-18 03:21] LABS: HEMATOCRIT 28.6 % (42.0-52.0); HEMOGLOBIN 8.9 gm/dL (14.0-18.0); MCH 24.5 pg (26.0-34.0); MCHC 30.9 g/dL (28.0-37.0); MCV 79.1 fL (80.0-100.0); RBC 3.62 mil/uL (4.50-6.00); RDW 24.7 % (10.5-14.5); WBC 12.2 thou/uL (4.0-11.0)
[2017-03-18 03:32] LABS: CREATININE 0.6 mg/dL (0.7-1.3); POTASSIUM 3.3 mmol/L (3.5-5.1)
[2017-03-18 14:28] LABS: APTT 31.8 Seconds (24.5-32.8); INR 1.3; PROTIME 13.6 Seconds (9.3-11.4)
[2017-03-19] VITALS (10 sets, daily range): BP systolic 70–103; BP diastolic 50–72
[2017-03-20] VITALS (31 sets, daily range): BP systolic 67–117; BP diastolic 49–102
[2017-03-20 04:30] LABS: CALCIUM 9.1 mg/dL (8.5-10.1); CREATININE 0.9 mg/dL (0.7-1.3)
[2017-03-20 04:45] LABS: POTASSIUM 2.9 mmol/L (3.5-5.1)
[2017-03-20 09:02] LABS: HEMOGLOBIN 9.2 gm/dL (14.0-18.0); MCH 24.2 pg (26.0-34.0); MCHC 29.8 g/dL (28.0-37.0); MCV 81.1 fL (80.0-100.0); RBC 3.83 mil/uL (4.50-6.00); RDW 25.7 % (10.5-14.5); WBC 19.3 thou/uL (4.0-11.0)
[2017-03-20 09:03] LABS: PLATELET COUNT 289 thou/uL (150-400)
[2017-03-20 09:46] LABS: ABSOLUTE NEUTROPHILS 18.3 thou/uL (1.4-8.2); PLATELET ESTIMATE NORMAL
[2017-03-20 09:47] LABS: ANISOCYTOSIS 2+; MICROCYTES 2+; POLYCHROMASIA 1+
[2017-03-20 12:42] LABS: CALCIUM 8.8 mg/dL (8.5-10.1); POTASSIUM 3.4 mmol/L (3.5-5.1)
[2017-03-20 15:30] LABS: CALCIUM 8.8 mg/dL (8.5-10.1); POTASSIUM 3.6 mmol/L (3.5-5.1)
[2017-03-21] VITALS (37 sets, daily range): BP systolic 67–139; BP diastolic 33–118
[2017-03-21 05:16] LABS: HCO3 41.1 mmol/L (22.0-26.0); PCO2 53.9 mmHg (35.0-45.0); PO2 71.4 mmHg (80.0-100.0); sO2 95.2 % (92.0-98.0)
[2017-03-21 05:37] LABS: HEMOGLOBIN 7.9 gm/dL (14.0-18.0)
[2017-03-21 05:39] LABS: MCH 24.2 pg (26.0-34.0); MCHC 30.2 g/dL (28.0-37.0); PLATELET COUNT 290 thou/uL (150-400); RBC 3.25 mil/uL (4.50-6.00)
[2017-03-21 05:44] LABS: CALCIUM 8.4 mg/dL (8.5-10.1); CREATININE 1.2 mg/dL (0.7-1.3)
[2017-03-21 05:45] LABS: WBC 40.2 thou/uL (4.0-11.0)
[2017-03-21 07:57] LABS: ABSOLUTE NEUTROPHILS 37.4 thou/uL (1.4-8.2)
[2017-03-21 07:58] LABS: ANISOCYTOSIS 2+; MAGNESIUM 1.6 mg/dL (1.8-2.4); PHOSPHORUS 3.1 mg/dL (2.5-4.9); POLYCHROMASIA OCCASIONAL
[2017-03-21 07:59] LABS: MACROCYTES 1+; MICROCYTES 1+
[2017-03-22] VITALS (70 sets, daily range): BP systolic 68–194; BP diastolic 42–176
[2017-03-22 05:59] LABS: MCH 24.5 pg (26.0-34.0); MCHC 30.6 g/dL (28.0-37.0); MCV 79.8 fL (80.0-100.0); RBC 2.63 mil/uL (4.50-6.00)
[2017-03-22 06:04] LABS: HEMOGLOBIN 6.4 gm/dL (14.0-18.0); PLATELET COUNT 209 thou/uL (150-400); WBC 18.8 thou/uL (4.0-11.0)
[2017-03-22 06:10] LABS: ALBUMIN 1.3 g/dL (3.4-5.0); CALCIUM 8.6 mg/dL (8.5-10.1); CREATININE 0.9 mg/dL (0.7-1.3); TOTAL BILIRUBIN 0.2 mg/dL (<0.1-1.0); TOTAL PROTEIN 5.2 g/dL (6.4-8.2)
[2017-03-22 06:12] LABS: POTASSIUM 2.5 mmol/L (3.5-5.1)
[2017-03-22 07:40] LABS: ABSOLUTE NEUTROPHILS 17.7 thou/uL (1.4-8.2); ANISOCYTOSIS 3+; MACROCYTES 1+
[2017-03-22 07:41] LABS: MICROCYTES 2+
[2017-03-22 07:42] LABS: HYPOCHROMASIA 1+
[2017-03-22 08:19] LABS: BE(vivo) 16.9 mmol/L (-2 to +3); HCO3 41.9 mmol/L (22.0-26.0); PCO2 54.4 mmHg (35.0-45.0); PO2 87.1 mmHg (80.0-100.0); pH 7.504 (7.360-7.450); sO2 97.1 % (92.0-98.0)
[2017-03-22 10:15] LABS: HEMOGLOBIN 6.6 gm/dL (14.0-18.0)
[2017-03-22 10:16] LABS: HEMATOCRIT 21.3 % (42.0-52.0); MCH 24.5 pg (26.0-34.0); MCHC 30.9 g/dL (28.0-37.0); MCV 79.3 fL (80.0-100.0); RBC 2.69 mil/uL (4.50-6.00); RDW 26.2 % (10.5-14.5); WBC 19.6 thou/uL (4.0-11.0)
[2017-03-22 11:11] LABS: HEMOGLOBIN 6.5 gm/dL (14.0-18.0)
[2017-03-22 11:12] LABS: HEMATOCRIT 21.3 % (42.0-52.0)
[2017-03-22 13:09] LABS: CALCIUM 8.8 mg/dL (8.5-10.1); CREATININE 0.8 mg/dL (0.7-1.3)
[2017-03-22 22:36] LABS: HEMATOCRIT 26.4 % (42.0-52.0)
[2017-03-22 22:37] LABS: HEMOGLOBIN 8.5 gm/dL (14.0-18.0)
[2017-03-23] VITALS (25 sets, daily range): BP systolic 77–144; BP diastolic 49–129
[2017-03-23 05:52] LABS: HEMATOCRIT 27.8 % (42.0-52.0); HEMOGLOBIN 8.9 gm/dL (14.0-18.0); MCH 25.8 pg (26.0-34.0); MCHC 32.1 g/dL (28.0-37.0); MCV 80.5 fL (80.0-100.0); RBC 3.45 mil/uL (4.50-6.00); RDW 22.7 % (10.5-14.5); WBC 23.2 thou/uL (4.0-11.0)
[2017-03-23 06:05] LABS: ALBUMIN 1.4 g/dL (3.4-5.0); CALCIUM 8.7 mg/dL (8.5-10.1); CREATININE 0.7 mg/dL (0.7-1.3); TOTAL BILIRUBIN 0.3 mg/dL (<0.1-1.0); TOTAL PROTEIN 5.7 g/dL (6.4-8.2)
[2017-03-24] VITALS (25 sets, daily range): BP systolic 78–119; BP diastolic 44–100
[2017-03-24 05:41] LABS: HEMATOCRIT 24.5 % (42.0-52.0); HEMOGLOBIN 7.7 gm/dL (14.0-18.0); MCH 25.8 pg (26.0-34.0); MCHC 31.5 g/dL (28.0-37.0); MCV 82.1 fL (80.0-100.0); PLATELET COUNT 176 thou/uL (150-400); RBC 2.98 mil/uL (4.50-6.00); WBC 20.5 thou/uL (4.0-11.0)
[2017-03-24 05:51] LABS: CALCIUM 8.7 mg/dL (8.5-10.1); CREATININE 0.6 mg/dL (0.7-1.3); POTASSIUM 3.9 mmol/L (3.5-5.1)
[2017-03-24 08:23] LABS: ANISOCYTOSIS 3+
[2017-03-25] VITALS (25 sets, daily range): BP systolic 70–110; BP diastolic 46–83
[2017-03-25 02:50] LABS: HEMATOCRIT 25.8 % (42.0-52.0); MCH 25.8 pg (26.0-34.0); MCV 83.3 fL (80.0-100.0); RBC 3.09 mil/uL (4.50-6.00); RDW 22.5 % (10.5-14.5); WBC 22.1 thou/uL (4.0-11.0)
[2017-03-25 02:58] LABS: CALCIUM 8.7 mg/dL (8.5-10.1); CREATININE 0.6 mg/dL (0.7-1.3); POTASSIUM 4.3 mmol/L (3.5-5.1)
[2017-03-26] VITALS (18 sets, daily range): BP systolic 78–122; BP diastolic 43–77
[2017-03-26 14:31] LABS: HEMATOCRIT 24.3 % (42.0-52.0); HEMOGLOBIN 7.6 gm/dL (14.0-18.0); MCH 26.2 pg (26.0-34.0); MCHC 31.1 g/dL (28.0-37.0); MCV 84.1 fL (80.0-100.0); RBC 2.89 mil/uL (4.50-6.00); RDW 22.9 % (10.5-14.5); WBC 28.3 thou/uL (4.0-11.0)
[2017-03-26 14:51] LABS: CALCIUM 9.1 mg/dL (8.5-10.1); CREATININE 0.5 mg/dL (0.7-1.3); POTASSIUM 5.1 mmol/L (3.5-5.1)
[2017-03-27 05:04] VITALS: BP 102/62
[2017-03-27 06:12] LABS: HEMATOCRIT 24.5 % (42.0-52.0); HEMOGLOBIN 7.6 gm/dL (14.0-18.0); MCH 26.3 pg (26.0-34.0); MCHC 31.2 g/dL (28.0-37.0); MCV 84.4 fL (80.0-100.0); RBC 2.91 mil/uL (4.50-6.00); RDW 23.3 % (10.5-14.5); WBC 22.6 thou/uL (4.0-11.0)
[2017-03-27 06:29] LABS: ALBUMIN 1.4 g/dL (3.4-5.0); ANION GAP 2 mmol/L (7-16); BUN 31 mg/dL (7-18); CALCIUM 8.8 mg/dL (8.5-10.1); CHLORIDE 112 mmol/L (98-107); CO2 32 mmol/L (21-32); CREATININE 0.4 mg/dL (0.7-1.3); GLUCOSE 93 mg/dL (74-106); POTASSIUM 5.2 mmol/L (3.5-5.1); SGOT 9 U/L (15-37); SODIUM 146 mmol/L (136-145); TOTAL BILIRUBIN 0.2 mg/dL (<0.1-1.0); TOTAL PROTEIN 5.7 g/dL (6.4-8.2)
[2017-03-27 06:30] LABS: SGPT < 6 U/L (30-65)
[2017-03-27 19:40] VITALS: BP 102/61
[2017-03-28 03:45] VITALS: BP 93/50
[2017-03-28 05:32] LABS: HEMATOCRIT 22.8 % (42.0-52.0); MCHC 30.9 g/dL (28.0-37.0); MCV 84.4 fL (80.0-100.0); RBC 2.7 mil/uL (4.50-6.00); RDW 24.2 % (10.5-14.5); WBC 18.5 thou/uL (4.0-11.0)
[2017-03-28 05:44] LABS: CREATININE 0.4 mg/dL (0.7-1.3); POTASSIUM 4.8 mmol/L (3.5-5.1)
[2017-03-28 07:51] VITALS: BP 89/51
[2017-03-28 12:45] VITALS: BP 95/56
[2017-03-28 16:00] VITALS: BP 104/58
[2017-03-28 20:36] VITALS: BP 95/53
[2017-03-29 04:27] VITALS: BP 88/54
[2017-03-29 05:42] LABS: HEMOGLOBIN 7.4 gm/dL (14.0-18.0); MCHC 30.7 g/dL (28.0-37.0); MCV 84.5 fL (80.0-100.0); RBC 2.84 mil/uL (4.50-6.00); RDW 23.9 % (10.5-14.5); WBC 20.3 thou/uL (4.0-11.0)
[2017-03-29 05:54] LABS: CALCIUM 9.1 mg/dL (8.5-10.1); CREATININE 0.3 mg/dL (0.7-1.3); POTASSIUM 4.6 mmol/L (3.5-5.1)
[2017-03-29 08:13] VITALS: BP 82/51
[2017-03-29 10:37] VITALS: BP 82/51
[2017-03-29 16:31] VITALS: BP 105/59
[2017-03-29 19:45] VITALS: BP 102/65
[2017-03-30 05:41] LABS: HEMATOCRIT 24.3 % (42.0-52.0); HEMOGLOBIN 7.5 gm/dL (14.0-18.0); MCH 25.9 pg (26.0-34.0); MCV 83.5 fL (80.0-100.0); RBC 2.91 mil/uL (4.50-6.00); RDW 24.4 % (10.5-14.5); WBC 20.1 thou/uL (4.0-11.0)
[2017-03-30 05:47] LABS: CALCIUM 9.3 mg/dL (8.5-10.1); CREATININE 0.3 mg/dL (0.7-1.3); POTASSIUM 4.6 mmol/L (3.5-5.1)
[2017-03-30 07:35] VITALS: BP 100/55
[2017-03-30] MEDS ORDERED: FLAGYL500 MG IV (10:51)
[2017-03-30] MEDS ORDERED: ONDANSETRON HCL4 M2 IV (10:51)
[2017-03-30] MEDS ORDERED: ZERBAXA 1-0.51.5 GM IV (10:51)
[2017-03-30] MEDS ORDERED: PROTONIX IV40 MG IV PUSH (10:51)
[2017-03-30] MEDS ORDERED: METOCLOPRA10 MG/101 PER TUBE (10:51)
[2017-03-30 12:15] VITALS: BP 111/68
== END 2017-03-30 13:28 | DRG 853 ==
LOC: ER 14:21 → ICU 18:08 → EROBS 18:08 → ICU 19:52 → 3W 03-26 20:25
PROVIDERS: Internal Medicine; Internal Medicine Cardiovascular Disease; Internal Medicine Gastroenterology; Internal Medicine Geriatric Medicine; Internal Medicine Pulmonary Disease; Nurse Practitioner Family; Physician Assistant; Specialist
PROC: 5A1955Z Respiratory Ventilation, Greater than 96 Consecutive Hours (ICD-10-PCS; principal; 2017-03-15)
PROC: 0JBM0ZZ Excision of Left Upper Leg Subcutaneous Tissue and Fascia, Open Approach (ICD-10-PCS; 2017-03-17)
PROC: 0BD78ZX Extraction of Left Main Bronchus, Via Natural or Artificial Opening Endoscopic, Diagnostic (ICD-10-PCS; 2017-03-22)
PROC: 30233N1 Transfusion of Nonautologous Red Blood Cells into Peripheral Vein, Percutaneous Approach (ICD-10-PCS; 2017-03-22)
PROC: 0BD38ZX Extraction of Right Main Bronchus, Via Natural or Artificial Opening Endoscopic, Diagnostic (ICD-10-PCS; 2017-03-22)
PROC: 0D20XUZ Change Feeding Device in Upper Intestinal Tract, External Approach (ICD-10-PCS; 2017-03-29)
PROC: 02HV33Z Insertion of Infusion Device into Superior Vena Cava, Percutaneous Approach (ICD-10-PCS; 2017-03-29)
DX: A41.59 Other Gram-negative sepsis (principal); G82.50 Quadriplegia, unspecified; J96.21 Acute and chronic respiratory failure with hypoxia; J15.1 Pneumonia due to Pseudomonas; L89.224 Pressure ulcer of left hip, stage 4; K56.609 Unspecified intestinal obstruction, unspecified as to partial versus complete obstruction; A04.72 Enterocolitis due to Clostridium difficile, not specified as recurrent; M86.652 Other chronic osteomyelitis, left thigh; E87.0 Hyperosmolality and hypernatremia; E87.3 Alkalosis; D62 Acute posthemorrhagic anemia; I48.92 Unspecified atrial flutter; R65.20 Severe sepsis without septic shock; I48.0 Paroxysmal atrial fibrillation; I73.9 Peripheral vascular disease, unspecified; E87.6 Hypokalemia; D64.9 Anemia, unspecified; K94.21 Gastrostomy hemorrhage; Y83.8 Other surgical procedures as the cause of abnormal reaction of the patient, or of later complication, without mention of misadventure at the time of the procedure; R13.10 Dysphagia, unspecified; K31.84 Gastroparesis; Z93.0 Tracheostomy status; Z88.2 Allergy status to sulfonamides; Z79.899 Other long term (current) drug therapy; Y92.89 Other specified places as the place of occurrence of the external cause
CPT/HCPCS: 10203; 10879; 27000

== ENCOUNTER 2017-05-06 18:03 | Emergency (ER) | payer OTHER, MEDICAID ==
[~2017-05-06] VITALS: Ht 182.9 cm; Wt 86.2 kg
[~2017-05-06 18:03] MED LIST changes: +FLAGYL500 MG IV; +METOCLOPRA10 MG/101 PER TUBE; +ONDANSETRON HCL4 M2 IV; +ONDANSETRON HCL4 M2 PO; +PROTONIX IV40 MG IV PUSH; +ZERBAXA 1-0.51.5 GM IV
[2017-05-06 19:58] VITALS: BP 128/78
== END 2017-05-06 21:13 ==
LOC: ER 18:03
DX: Z43.1 Encounter for attention to gastrostomy (principal); I48.91 Unspecified atrial fibrillation; I10 Essential (primary) hypertension; K21.9 Gastro-esophageal reflux disease without esophagitis; G47.30 Sleep apnea, unspecified; F41.9 Anxiety disorder, unspecified; Z88.2 Allergy status to sulfonamides